=== PATIENT | female | born 1985 | race Caucasian/White ===

== ENCOUNTER → 2021-04-23 11:27 | Outpatient (BNVA) | payer OTHER, SELFPAY | PROVIDERS: PCP Internal Medicine; Visit Provider Psychiatry & Neurology Neurology | DX: G24.3 Spasmodic torticollis (principal); E83.01 Wilson's disease | CPT/HCPCS: 64616; 99212; J0585 ==

== ENCOUNTER → 2021-07-29 12:09 | Outpatient (BNVA) | payer OTHER, SELFPAY | PROVIDERS: PCP Internal Medicine; Visit Provider Psychiatry & Neurology Neurology | DX: G24.3 Spasmodic torticollis (principal); E83.01 Wilson's disease; Z79.899 Other long term (current) drug therapy | CPT/HCPCS: 64616; 99212; J0585 ==

== ENCOUNTER → 2021-11-10 15:23 | Outpatient (BNVA) | payer OTHER, SELFPAY | PROVIDERS: PCP Internal Medicine; Visit Provider Psychiatry & Neurology Neurology | DX: G24.3 Spasmodic torticollis (principal); E83.01 Wilson's disease; Z79.899 Other long term (current) drug therapy | CPT/HCPCS: 64616; 99211; J0585 ==

== ENCOUNTER → 2022-02-17 11:07 | Outpatient (BNVA) | payer OTHER, SELFPAY | PROVIDERS: PCP Internal Medicine; Visit Provider Psychiatry & Neurology Neurology | DX: G24.3 Spasmodic torticollis (principal); E83.01 Wilson's disease | CPT/HCPCS: 64616; 99211; J0585 ==

== ENCOUNTER → 2022-05-27 08:50 | Outpatient (BNVA) | payer OTHER, SELFPAY | PROVIDERS: PCP Internal Medicine; Visit Provider Psychiatry & Neurology Neurology | DX: G24.3 Spasmodic torticollis (principal); E83.01 Wilson's disease | CPT/HCPCS: 64616; 99211; J0585 ==

== ENCOUNTER 2022-09-07 13:52 | Outpatient (AMB) | payer OTHER, SELFPAY ==
--- NOTE | 2022-09-07 13:52 | MHC.OFFVIS ---
Intake Vital Signs 09/07/22 13:53 Height 5 ft 5 in Weight 119 lb BMI 19.8 BP 110/82 Blood Pressure Location Rt brachial Position Sitting Pulse 87 Pulse Source Pulse Oximeter Pulse Oximetry (%) 99 Oxygen Delivery Method Room Air Intake Visit Reasons: Botox(pharm)-CONFIRMED Intake Note: Patient presents for botox injection Allergies Penicillins Allergy (Verified 09/07/22 13:55) Hives Medication List - Last Reconciled 09/07/22 by Corinna See MD citalopram 20 mg PO DAILY clonazepam 0.5 mg PO BEDTIME 30 days cyclobenzaprine 10 mg PO BEDTIME deutetrabenazine (Austedo) 2 tabs qam and 1 tab qhs PO .twice a day; gabapentin 1-3 caps orally bedtime; norgestimate-ethinyl estradiol 0.25-35 mg-mcg 1 tab PO DAILY onabotulinumtoxinA (Botox) to be injected to neck muscles q 3 months by physician; sennosides (senna) 8.6 mg PO DAILY PRN zinc acetate (Galzin) 50 mg PO BID HPI HPI Comments History of Present Illness Details 36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 Trientene was stopped by GI . ??? Side effects including spread of toxin effect, dysphagia, breathing difficulties , bronchitis etc was discussed in detail and the patient agreed to the procedure.An informed consent was obtained ??? Botulinum toxin type A 200units -was diluted with 4 cc of normal saline at a concentration of 25 units in 0.5cc saline. Lot number [id number] expiration 03/2025 ??? Muscles injected ?Right Splenius 25 units Right Levator 50 units Right semispinalis - 25 units Left Levator 50 units ??? Total used 150 units Discarded-50units [facility] Medical History Cervical dystonia Wilsons disease Surgical History History of surgery of liver Social History Alcohol intake: never Patient Tobacco Use Status: Never used Tobacco Physical Exam Vital Signs: Last Vital Signs Pulse 87 09/07/22 13:53 BP 110/82 09/07/22 13:53 Pulse Ox 99 09/07/22 13:53 Oxygen Delivery Method Room Air 09/07/22 13:53 BMI result Body Mass Index 19.8 Const Other: antecollis and left laterocollis General: cooperative Nutritional Appearance: average body habitus Orientation/consciousness: patient oriented x3 Neuro Other: Slowed speech. . Cervical dystonia. Dystonia in upper and lower extremities. 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
[2022-09-07 13:53] VITALS: BP 110/82; PULSE 87; O2SAT 99; BMI 19.8
== END 2022-09-07 14:26 | disposition home or self-care (01) ==
PROVIDERS: Visit Provider Psychiatry & Neurology Neurology
DX: G24.3 Spasmodic torticollis (principal); E83.01 Wilson's disease
CPT/HCPCS: 64616

== ENCOUNTER → 2022-09-07 13:52 | Outpatient (BNVA) | payer OTHER, SELFPAY | PROVIDERS: Visit Provider Psychiatry & Neurology Neurology | DX: E83.01 Wilson's disease (principal); G24.3 Spasmodic torticollis | CPT/HCPCS: 64616; J0585 ==

== ENCOUNTER 2022-12-14 09:13 | Outpatient (AMB) | payer OTHER, SELFPAY ==
--- NOTE | 2022-12-14 09:19 | A.OFFVIS_ITS ---
Intake Vital Signs 12/14/22 09:20 Height 5 ft 5 in Weight 120 lb 2 oz BMI 20.0 BP 136/82 Blood Pressure Location Lt brachial Position Sitting Respiration 16 Pulse 101 H Pulse Source Pulse Oximeter Pulse Oximetry (%) 98 Oxygen Delivery Method Room Air Intake Visit Reasons: Botox(pharm) Intake Note: Pt presents to the office for Botox injections. Reel Slitter Required: No Allergies Penicillins Allergy (Verified 12/14/22 09:20) Hives Medication List - Last Reconciled 12/14/22 by Corinna See MD citalopram 20 mg PO DAILY clonazepam 0.5 mg PO BEDTIME 30 days cyclobenzaprine 10 mg PO BEDTIME deutetrabenazine (Austedo) 2 tabs qam and 1 tab qhs PO .twice a day; gabapentin 1-3 caps orally bedtime; meloxicam 7.5 mg PO DAILY norgestimate-ethinyl estradiol 0.25-35 mg-mcg 1 tab PO DAILY onabotulinumtoxinA (Botox) to be injected to neck muscles q 3 months by physician; sennosides (senna) 8.6 mg PO DAILY PRN zinc acetate (Galzin) 50 mg PO BID HPI HPI Comments History of Present Illness Details 37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 Trientene was stopped by GI . ??? Side effects including spread of toxin effect, dysphagia, breathing difficulties , bronchitis etc was discussed in detail and the patient agreed to the procedure.An informed consent was obtained ??? Botulinum toxin type A 200units -was diluted with 4 cc of normal saline at a concentration of 25 units in 0.5cc saline. Lot number [id number] expiration 03/2025 ??? Muscles injected ?Right Splenius 25 units Right Levator 50 units Right semispinalis - 25 units right trapezius 25 units Left Levator 50 units ??? Total used 175 units Discarded-25units [facility] Medical History Cervical dystonia Wilsons disease Surgical History History of surgery of liver Social History Alcohol intake: never Patient Tobacco Use Status: Never used Tobacco Physical Exam Vital Signs: Last Vital Signs Pulse 101 H 12/14/22 09:20 Resp 16 12/14/22 09:20 BP 136/82 12/14/22 09:20 Pulse Ox 98 12/14/22 09:20 Oxygen Delivery Method Room Air 12/14/22 09:20 BMI result Body Mass Index 20.0 Const Other: antecollis and left laterocollis General: cooperative Nutritional Appearance: average body habitus Orientation/consciousness: patient oriented x3 Neuro Other: Slowed speech. . Cervical dystonia. Dystonia in upper and lower extremities. Gait mildly off balance General: patient oriented x3 Office Procedures Botulinum toxin Injection 15620 - Dystonia Procedure code (CPT) selection complete Office Meds onabotulinumtoxinA 200 unit solution for injection Performing Provider: Corinna See MD [place] [facility] [place] [facility] Administered by: Corinna See MD on 12/14/22 10:02 Dose Route Admin Location Dispensed Lot Number Expiration Date [facility] Quill Skinner 175 unit IM 200 units [id number] 03/16/25 5033-4359-24 ALLERGAN/BOTOX Comments: see hpi Assessment & Plan Assessment & Plan (1) Cervical dystonia: Code(s): G24.3 - Spasmodic torticollis (2) 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
[2022-12-14 09:20] VITALS: BP 136/82; PULSE 101; RESP 16; O2SAT 98
== END 2022-12-14 09:56 | disposition home or self-care (01) ==
PROVIDERS: PCP Internal Medicine; Visit Provider Psychiatry & Neurology Neurology
DX: G24.3 Spasmodic torticollis (principal)
CPT/HCPCS: 64616

== ENCOUNTER → 2022-12-14 09:13 | Outpatient (BNVA) | payer OTHER, SELFPAY | PROVIDERS: PCP Internal Medicine; Visit Provider Psychiatry & Neurology Neurology | DX: G24.3 Spasmodic torticollis (principal); E83.01 Wilson's disease | CPT/HCPCS: 64616; 99211; J0585 ==

== ENCOUNTER 2023-03-16 10:13 | Outpatient (AMB) | payer OTHER, SELFPAY ==
--- NOTE | 2023-03-16 10:30 | A.OFFVIS_ITS ---
Intake Vital Signs 03/16/23 10:32 Height 5 ft 5 in BP 150/90 H Blood Pressure Location Lt brachial Position Sitting Respiration 16 Pulse 98 Pulse Source Pulse Oximeter Pulse Oximetry (%) 98 Oxygen Delivery Method Room Air Intake Visit Reasons: Botox(pharm)/ Confirmed Intake Note: Pt presents to the office for Botox injections. Pot Puller Required: No Allergies Penicillins Allergy (Verified 03/16/23 10:30) Hives Medication List - Last Reconciled 03/16/23 by Corinna See MD citalopram 20 mg PO DAILY clonazepam 0.5 mg PO BEDTIME 30 days cyclobenzaprine 10 mg PO BEDTIME deutetrabenazine (Austedo) 2 tabs qam and 1 tab qhs PO .twice a day; gabapentin 1-3 caps orally bedtime; meloxicam 7.5 mg PO DAILY norgestimate-ethinyl estradiol 0.25-35 mg-mcg 1 tab PO DAILY onabotulinumtoxinA (Botox) to be injected to neck muscles q 3 months by physician; sennosides (senna) 8.6 mg PO DAILY PRN zinc acetate (Galzin) 50 mg PO BID HPI HPI Comments History of Present Illness Details 37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 Trientene was stopped by GI . ??? Side effects including spread of toxin effect, dysphagia, breathing difficulties , bronchitis etc was discussed in detail and the patient agreed to the procedure.An informed consent was obtained ??? Botulinum toxin type A 200units -was diluted with 4 cc of normal saline at a concentration of 25 units in 0.5cc saline. Lot number [id number] expiration 07/2025 ??? Muscles injected ?Right Splenius 25 units Right Levator 50 units Right semispinalis - 25 units Sunny trapezius 25 units each Left Levator 50 units ??? Total used 175 units Discarded-25units [facility] Medical History Cervical dystonia Wilsons disease Surgical History History of surgery of liver Social History Alcohol intake: never Patient Tobacco Use Status: Never used Tobacco Physical Exam Vital Signs: Last Vital Signs Pulse 98 03/16/23 10:32 Resp 16 03/16/23 10:32 BP 150/90 H 03/16/23 10:32 Pulse Ox 98 03/16/23 10:32 Oxygen Delivery Method Room Air 03/16/23 10:32 Const Other: antecollis and left laterocollis General: cooperative Nutritional Appearance: average body habitus Orientation/consciousness: patient oriented x3 Neuro Other: Slowed speech. . Cervical dystonia. Dystonia in upper and lower extremities. Gait mildly off balance General: patient oriented x3 Office Procedures Botulinum toxin Injection 37852 - Dystonia Procedure code (CPT) selection complete Office Meds onabotulinumtoxinA 200 unit solution for injection Performing Provider: Corinna See MD Performing Location: [facility] [place] [facility] Administered by: Corinna See MD on 03/16/23 11:15 Dose Route Admin Location Dispensed Lot Number Expiration Date 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
[2023-03-16 10:32] VITALS: BP 150/90; PULSE 98; RESP 16; O2SAT 98
== END 2023-03-16 11:13 | disposition home or self-care (01) ==
PROVIDERS: PCP Internal Medicine; Visit Provider Psychiatry & Neurology Neurology
DX: G24.3 Spasmodic torticollis (principal); E83.01 Wilson's disease
CPT/HCPCS: 64616

== ENCOUNTER → 2023-03-16 10:13 | Outpatient (BNVA) | payer OTHER, SELFPAY | PROVIDERS: PCP Internal Medicine; Visit Provider Psychiatry & Neurology Neurology | DX: E83.01 Wilson's disease (principal); G24.3 Spasmodic torticollis | CPT/HCPCS: 64616; 99211; J0585 ==

== ENCOUNTER 2023-06-15 09:40 | Outpatient (AMB) | payer OTHER, SELFPAY ==
--- NOTE | 2023-06-15 09:44 | MHC.OFFVIS ---
Vital Signs 06/15/23 09:50 Respiration 16 Pulse 101 H Pulse Source Pulse Oximeter Pulse Oximetry (%) 98 Oxygen Delivery Method Room Air Intake Visit Reasons: Botox(pharm)-CONF Intake Note: Pt presents for Botox injections. 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 Trientene was stopped by GI . ??? Side effects including spread of toxin effect, dysphagia, breathing difficulties , bronchitis etc was discussed in detail and the patient agreed to the procedure.An informed consent was obtained ??? Botulinum toxin type A 200units -was diluted with 4 cc of normal saline at a concentration of 25 units in 0.5cc saline. Lot number [id number] expiration 07/2025 ??? Muscles injected ?Right Splenius 25 units Right Levator 50 units Right semispinalis - 25 units Sunny trapezius 25 units each Left Levator 50 units LEFT TRAPEZIUS 25 UNITS ??? Total used 200 units [facility] Medical History Cervical dystonia Wilsons disease Surgical History History of surgery of liver Social History Alcohol intake: never Patient Tobacco Use Status: Never used Tobacco Physical Exam Const Other: antecollis and left laterocollis General: cooperative Nutritional Appearance: average body habitus Orientation/consciousness: patient oriented x3 Neuro Other: Slowed speech. . Cervical dystonia. Dystonia in upper and lower extremities. Gait mildly off balance General: patient oriented x3 Office Procedures Botulinum toxin Injection 48770 - Dystonia Procedure code (CPT) selection complete Office Meds onabotulinumtoxinA 200 unit solution for injection Performing Provider: Corinna See MD Performing Location[place] [facility] [place] [facility] Administered by: Corinna See MD on 06/15/23 10:10 Dose Route Admin Location Dispensed Lot Number Expiration Date [facility] Inbound Customer Service Agent 200 unit IM 200 units [id number] 07/14/25 8167-9635-49 ALLERGAN/BOTOX Comments: see hpi Assessment & Plan Assessment & Plan (1) Cervical dystonia: Code(s): G24.3 - Spasmodic torticollis Category: Medical (2) 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
[2023-06-15 09:50] VITALS: PULSE 101; RESP 16; O2SAT 98
== END 2023-06-15 10:10 | disposition home or self-care (01) ==
PROVIDERS: PCP Internal Medicine; Visit Provider Psychiatry & Neurology Neurology
DX: G24.3 Spasmodic torticollis (principal)
CPT/HCPCS: 64616; 99211

== ENCOUNTER → 2023-06-15 09:40 | Outpatient (BNVA) | payer OTHER, SELFPAY | PROVIDERS: PCP Internal Medicine; Visit Provider Psychiatry & Neurology Neurology | DX: G24.3 Spasmodic torticollis (principal); E83.01 Wilson's disease | CPT/HCPCS: 64616; 99211; J0585 ==

== ENCOUNTER 2023-10-05 10:13 | Outpatient (AMB) | payer OTHER, SELFPAY ==
[2023-10-05 10:22] VITALS: BP 120/72; PULSE 101; RESP 16; O2SAT 99
--- NOTE | 2023-10-05 10:22 | A.OFFVIS_ITS ---
Vital Signs 10/05/23 10:22 Height 5 ft 5 in BP 120/72 Blood Pressure Location Rt brachial Position Sitting Respiration 16 Pulse 101 H Pulse Source Pulse Oximeter Pulse Oximetry (%) 99 Oxygen Delivery Method Room Air Intake Visit Reasons: Botox Intake Note: Pt presents to the office for Botox injections for cervical dystonia. Senior Ruby Developer Required: No Allergies Penicillins Allergy (Verified 10/05/23 10:22) Hives Medication List - Last Reconciled 10/05/23 by Corinna See MD [cane As directed] citalopram 20 mg PO DAILY clonazepam 0.5 mg PO BEDTIME 30 days cyclobenzaprine 10 mg PO BEDTIME deutetrabenazine (Austedo) 2 tabs qam and 1 tab qhs PO .twice a day; gabapentin 1-3 caps orally bedtime; meloxicam 7.5 mg PO DAILY norgestimate-ethinyl estradiol 0.25-35 mg-mcg 1 tab PO DAILY onabotulinumtoxinA (Botox) to be injected to neck muscles q 3 months by physician; sennosides (senna) 8.6 mg PO DAILY PRN zinc acetate (Galzin) 50 mg PO BID HPI Comments Details: 38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 Trientene was stopped by GI . ??? Side effects including spread of toxin effect, dysphagia, breathing difficulties , bronchitis etc was discussed in detail and the patient agreed to the procedure.An informed consent was obtained ??? Botulinum toxin type A 200units -was diluted with 4 cc of normal saline at a concentration of 25 units in 0.5cc saline. Lot number [id number] expiration 12/2025 ??? Muscles injected ?Right Splenius 25 units Right Levator 50 units Right semispinalis - 25 units Sunny trapezius 25 units each Left Levator 50 units LEFT TRAPEZIUS 25 UNITS ??? Total used 200 units [facility] Medical History Cervical dystonia Wilsons disease Surgical History History of surgery of liver Social History Alcohol intake: never Patient Tobacco Use Status: Never used Tobacco Physical Exam Vital Signs: Last Vital Signs Pulse 101 H 10/05/23 10:22 Resp 16 10/05/23 10:22 BP 120/72 10/05/23 10:22 Pulse Ox 99 10/05/23 10:22 Oxygen Delivery Method Room Air 10/05/23 10:22 Const Other: antecollis and left laterocollis General: cooperative Nutritional Appearance: average body habitus Orientation/consciousness: patient oriented x3 Neuro Other: Slowed speech. . Cervical dystonia. Dystonia in upper and lower extremities. Gait mildly off balance General: patient oriented x3 Office Procedures Botulinum toxin Injection 55485 - Dystonia Procedure code (CPT) selection complete Office Meds onabotulinumtoxinA 200 unit solution for injection Performing Provider: Corinna See MD [place] [facility] [place] [facility] Administered by: Corinna See MD on 10/05/23 11:10 Dose Route Admin Location Dispensed Lot Number Expiration Date [facility] Junior Account Manager 200 unit IM 200 units [id number] 12/14/25 5518-2800-41 ALLERGAN/BOTOX Comments: see HPI Assessment & Plan Assessment & Plan (1) Cervical dystonia: Code(s): G24.3 - Spasmodic torticollis Category: Medical (2) 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
== END 2023-10-05 11:03 | disposition home or self-care (01) ==
PROVIDERS: PCP Internal Medicine; Visit Provider Psychiatry & Neurology Neurology
DX: G24.3 Spasmodic torticollis (principal); E83.01 Wilson's disease
CPT/HCPCS: 64616

== ENCOUNTER → 2023-10-05 10:13 | Outpatient (BNVA) | payer OTHER, SELFPAY | PROVIDERS: PCP Internal Medicine; Visit Provider Psychiatry & Neurology Neurology | DX: G24.3 Spasmodic torticollis (principal); E83.01 Wilson's disease | CPT/HCPCS: 64616; 99211; J0585 ==

== ENCOUNTER 2024-01-08 09:23 | Outpatient (AMB) | payer OTHER, SELFPAY ==
--- NOTE | 2024-01-08 09:26 | MHC.OFFVIS ---
Vital Signs 01/08/24 09:29 Height 5 ft 5 in Intake Visit Reasons: Botox Intake Note: Patient presents for botox injection Allergies Penicillins Allergy (Verified 01/08/24 09:33) Hives Medication List - Last Reconciled 01/10/24 by Corinna See MD [cane As directed] citalopram 20 mg PO DAILY clonazepam 0.5 mg PO BEDTIME 30 days cyclobenzaprine 10 mg PO BEDTIME deutetrabenazine (Austedo) 2 tabs qam and 1 tab qhs PO .twice a day; gabapentin 1-3 caps orally bedtime; meloxicam 7.5 mg PO DAILY norgestimate-ethinyl estradiol 0.25-35 mg-mcg 1 tab PO DAILY onabotulinumtoxinA (Botox) to be injected to neck muscles q 3 months by physician; sennosides (senna) 8.6 mg PO DAILY PRN zinc acetate (Galzin) 50 mg PO BID HPI Comments Details: 38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 Trientene was stopped by GI . ??? Side effects including spread of toxin effect, dysphagia, breathing difficulties , bronchitis etc was discussed in detail and the patient agreed to the procedure.An informed consent was obtained ??? Botulinum toxin type A 200units -was diluted with 4 cc of normal saline at a concentration of 25 units in 0.5cc saline. Lot number [id number] expiration 12/2025 ??? Muscles injected ?Right Splenius 25 units Right Levator 50 units Right semispinalis - 25 units Sunny trapezius 25 units each Left Levator 50 units ??? Total used 200 units [facility] Medical History Cervical dystonia Wilsons disease Surgical History History of surgery of liver Social History Alcohol intake: never Patient Tobacco Use Status: Never used Tobacco Physical Exam Const Other: antecollis and left laterocollis General: cooperative Nutritional Appearance: average body habitus Orientation/consciousness: patient oriented x3 Neuro Other: Slowed speech. . Cervical dystonia. Dystonia in upper and lower extremities. Gait mildly off balance General: patient oriented x3 Office Procedures Botulinum toxin Injection 50431 - Dystonia Procedure code (CPT) selection complete Office Meds onabotulinumtoxinA 200 unit solution for injection Performing Provider: Corinna See MD Performing Location: [facility] [place] [facility] Administered by: Corinna See MD on 01/10/24 08:42 Dose Route Admin Location Dispensed Lot Number Expiration Date [facility] Linderman Operator 200 unit IM 200 units [id number] ALLERGAN/BOTOX Comments: see HPI Assessment & Plan Assessment & Plan (1) Cervical dystonia: Code(s): G24.3 - Spasmodic torticollis Category: Medical (2) 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
== END 2024-01-08 10:15 | disposition home or self-care (01) ==
PROVIDERS: PCP Internal Medicine; Visit Provider Psychiatry & Neurology Neurology
DX: G24.3 Spasmodic torticollis (principal)
CPT/HCPCS: 64616

== ENCOUNTER → 2024-01-08 09:23 | Outpatient (BNVA) | payer OTHER, SELFPAY | PROVIDERS: PCP Internal Medicine; Visit Provider Psychiatry & Neurology Neurology | DX: G24.3 Spasmodic torticollis (principal); E83.01 Wilson's disease | CPT/HCPCS: 64616; 99211; J0585 ==

== ENCOUNTER 2024-04-23 08:50 | Outpatient (AMB) | payer OTHER, SELFPAY ==
[2024-04-23 08:52] VITALS: BP 110/72; PULSE 112; O2SAT 99
--- NOTE | 2024-04-23 08:52 | A.OFFVIS_ITS ---
Vital Signs 04/23/24 08:52 Height 5 ft 5 in BP 110/72 Blood Pressure Location Rt brachial Position Sitting Pulse 112 H Pulse Source Pulse Oximeter Pulse Oximetry (%) 99 Oxygen Delivery Method Room Air Intake Visit Reasons: Botox Intake Note: Patient presents for botox injection. practice supplied Allergies Penicillins Allergy (Verified 04/23/24 08:55) Hives Medication List - Last Reconciled 04/23/24 by Corinna See MD [cane As directed] citalopram 20 mg PO DAILY clonazepam 0.5 mg PO BEDTIME 30 days cyclobenzaprine 10 mg PO BEDTIME deutetrabenazine (Austedo) 2 tabs qam and 1 tab qhs PO .twice a day; gabapentin 1-3 caps orally bedtime; meloxicam 7.5 mg PO DAILY norgestimate-ethinyl estradiol 0.25-35 mg-mcg 1 tab PO DAILY onabotulinumtoxinA (Botox) to be injected to neck muscles q 3 months by physician; sennosides (senna) 8.6 mg PO DAILY PRN zinc acetate (Galzin) 50 mg PO BID HPI Comments Details: 38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 Trientene was stopped by GI . ??? Side effects including spread of toxin effect, dysphagia, breathing difficulties , bronchitis etc was discussed in detail and the patient agreed to the procedure.An informed consent was obtained ??? Botulinum toxin type A 200units -was diluted with 4 cc of normal saline at a concentration of 25 units in 0.5cc saline. Lot number [id number] expiration 05/2026 ??? Muscles injected ?Right Splenius 25 units Right Levator 50 units Right semispinalis - 25 units Sunny trapezius 25 units each Left Levator 50 units ??? Total used 200 units [facility] Medical History Cervical dystonia Wilsons disease Surgical History History of surgery of liver Social History Alcohol intake: never Patient Tobacco Use Status: Never used Tobacco Physical Exam Vital Signs: Last Vital Signs Pulse 112 H 04/23/24 08:52 BP 110/72 04/23/24 08:52 Pulse Ox 99 04/23/24 08:52 Oxygen Delivery Method Room Air 04/23/24 08:52 Const Other: antecollis and left laterocollis General: cooperative Nutritional Appearance: average body habitus Orientation/consciousness: patient oriented x3 Neuro Other: Slowed speech. . Cervical dystonia. Dystonia in upper and lower extremities. Gait mildly off balance General: patient oriented x3 Office Procedures Botulinum toxin Injection 31764 - Dystonia Procedure code (CPT) selection complete Office Meds onabotulinumtoxinA 200 unit solution for injection Performing Provider: Corinna See MD Performing Location: [facility] Administered by: Corinna See MD on 04/23/24 09:29 Dose Route Admin Location Dispensed Lot Number Expiration Date NDC Admissions Supervisor 200 unit subcut 200 units [id number] 05/14/26 2492-1834-74 ALLERGAN/BOTOX Comments: see hpi Assessment & Plan Assessment & Plan (1) Cervical dystonia: Code(s): G24.3 - Spasmodic torticollis Category: Medical (2) 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 Category: Medical Plan zinc 50mg 2tabs bid citalopram 20mg qd Patient tolerated the procedure well she will call with any side effects Patient will benefit from Massage therapy to her neck muscles 2 times a month to relive tightness stiffness and discomfort Orders: Orders AMB Botulinum toxin Injection Today G24.3 - Spasmodic torticollis Medications: New lorazepam 1 tab 1 hr before botox 0.5 mg PO DAILY PRN 2 tabs 3RF anxiety onabotulinumtoxinA 200 units subcut ONCE 1 ea 0RF Dystonia G24.3 - Spasmodic torticollis Changed From cyclobenzaprine 10 mg PO BEDTIME 30 tabs 3RF To cyclobenzaprine 1 tab qhs and extra 1/2 tab as needed at bedtime orally bedtime; 1 tab at bedtime , extra 1/2 tab as needed at bed time 45 tabs 3RF Coding Level of Care Code Est Pt Level 1 (56690) Diagnoses Cervical dystonia G24.3 Wilsons disease E83.01 CPT Codes Botox Injection - Botox 4: 71071 - Dystonia ([id number])
--- OUTSIDE RECORDS SUMMARY | 2024-04-23 09:43 | XMS_ITS | Data Portability ---
Author Organization [place] - [facility], Allergy Address [address] [place] [id number] Assessment No assessment recorded. Plan of Treatment Reminders Order Date Submit Date Provider Last Modified By Organization Details Last Modified Time Details Appointments None recorded. Lab None recorded. Referral None recorded. Procedures None recorded. Surgeries None recorded. Imaging None recorded. Medication Orders clindamycin HCl 300 mg capsule 2024 025 [facility]/Pharmacy #[id number], [address] [place], [address], 13:51:41 Patient TargetsNo targets recorded. Patient InstructionsNo instructions recorded. Reason for Referral None Reported. Problems Name Problem SNOMED Code Status Onset Date Resolution Date Notes Provider Name and Address Organization Details Recorded Time Hematoma of left pinna 964335097998262 2 Active 2024 SANDRA ROMO MD [address] [place] [address], [phone], [facility] 13:50:38 Problem Notes None recorded. Procedures Surgical History Date Name Laterality Status Provider Name and Address Organization Details Recorded Time Auricular hematoma left I&D w bolster completed SANDRA ROMO MD [address] [place] [address], [phone], [facility] 03/25/2024 13:50:23 Imaging Results None recorded. Procedure Notes None recorded. Medical Equipment None Reported. Allergies Allergen ID Allergen Name Allergen Category Reaction Reaction Severity Criticality Documentation Date Start Date Code Code System Note Provider Name and Address Organization Details Recorded Time 909636 Product containin g penicilli n (product) medicatio n rash Not available low 03/25/2024 43454 1197 SNOMED Lacey garcia [place] - [facility] 13:12:34 Medications Name Sig Start Date Stop Date Status Note LastModified by Organization Details LastModified Time cyclobenzap rine 10 mg tablet active Not Available Not Available Not Available Galzin 50 mg (zinc) capsule TAKE 1 CAPSULE BY MOUTH TWICE A DAY active Not Available Not Available No t Available norgestimat e 0.25 mg-ethinyl estradiol 35 mcg tablet TAKE 1 TABLET BY MOUTH EVERY DAY DIRECTED FOR 84 DAYS active Not Available Not Available No t Available ketoconazol e 2 % shampoo PLEASE SEE ATTACHED FOR DETAILED DIRECTION S 03/29 completed Not Available Not Available Not Available clindamycin HCl 300 mg capsule TAKE 1 CAPSULE BY MOUTH EVERY 8 HOURS FOR 7 DAYS active Not Available Not Available No t Available clonazepam 0.5 mg tablet TAKE 1 TABLET ORALLY BEDTIME FOR 30 DAYS ADMINISTE R 30 MINUTES BEFORE BEDTIME active Not Available Not Available No t Available citalopram 20 mg tablet active Not Available Not Available Not Available sodium fluoride 1.1 %-potassium nitrate 5 % dental paste USE 2-3X/PAMELA Y, SPIT OUT EXCESS DO NOT RINSE WITH WATER. NO EATING OR DRINKING FOR 45 MIN AFTER. active Not Available Not Available No t Available diclofenac 1 % topical gel TAKE 2 GRAMS (TOPICAL) 4 TIMES PER DAY FOR 10 DAYS active Not Available Not Available No t Available Botox 200 unit injection active Not Available Not Available No t Available Austedo 6 mg tablet active Not Available Not Available No t Available Vitals Date Recorded Body height Body mass index (BMI) Body weight Provider Name and Address Organization Details Last Updated DateTime 03/25/2024 165.1 cm 20.8 kg/m2 32287.05 g Lacey Faulkner [place] - [facility] 03/25/2024 13:11:56 Date Recorded Body height Body mass index (BMI) Body weight Provider Name and Address Organization Details Last Updated DateTime 03/29/2024 165.1 cm 20.8 kg/m2 97051.05 g Clarice Dillard [place] - [facility] 03/29/2024 13:32:43 Social History Question Answer Notes LastModified by Organizat ion Details LastModified Time Do You Use Any Illicit Or Recreational Drugs? No Information not available 03/25/2024 Do You Or Have You Ever Used Any Other Forms Of Tobacco Or Nicotine? No Information not available 03/25/2024 Sex: Unknown Functional Status None recorded. Mental Status None recorded. Family History Nothing Reported. Medical History Condition Response Allergies/Hayfever N Heart Problems N Anxiety N Tonsil Infections N Emphysema N Migraines Y Thyroid Problems N Glaucoma N Depression N COPD N Developmental Delay N Nasal or Sinus Problems N Anemia N Immune System Disorder Y Anesthesia Complications N Heart Attack ([place]) N Other Skin Condition N Diabetes N Rhinitis N Bleeding Disorder N Food Allergy N Arthritis Y Hearing Loss N Hyperlipidemia N Cancer N Stroke N Dementia N Nasal polyps N Asthma N Sleep Disorder N GERD/Reflux N High Cholesterol N Liver Disease N Headaches Y Fibromyalgia N Hypertension Y Speech Delay N Kidney Disease N Gynecological HistoryNo gynecological history recorded. 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 The area is fairly small involving primarily the triangular fossa. She did have it aspirated but it has since recollecte d. We discussed observatio n versus incision and drainage. We discussed risk of infection, recurrence , persistent deformity. She elected to proceed and tolerated the procedure well. Will follow-up in a few days to remove the dressing and reassess. [id number] SANDRA ROMO MD [facility] [address] [address] 03/29/2024 13:25:35 03/29/2024 15:37:55 Hematoma of left pinna [id number] 092776 H61.122 Bolster removed. There is no recurrence of fluctuance , but there is still little thickening at the site of hematoma. Follow-up for any worsening. Health Concerns Section Related Observation LastModified by Organization Detai ls LastModified Time None Recorded Concern Status LastModified by Organization Details LastModified Time None Recorded Advance Directives Directive None Recorded Payers Encounter Date Sequence Insurance Name Policy Number Policy Peterson Covered Member ID Peterson Member ID Guarantor Name 03/25/2024 1 [facility] (MEDICARE REPLACEMENT/ADV ANTAGE - HMO) Sultana Yun Nola [id number] Ronel Yun Nola 03/25/2024 1 [place] [facility] Ronel Yun Nola [id number] Ronel Yun Nola 03/29/2024 1 [facility] - DOS ON OR AFTER 2022 - [employer] (MEDICARE REPLACEMENT/ADV ANTAGE - HMO) Sultana Nola [id number] Ronel M Nola Notes Date Note Type Note Provider Name and Address Organization Details Recorded Time 03/25/2024 text/html 38-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 She is not quite sure how she received it. She did hit the back of her head, but does not recall any direct trauma to her ear. She does wear ear buds. She did have it aspirated at urgent care. SANDRA ROMO MD [address] [place] [address], [phone], [place] - [facility] 03/27/2024 10:24:28 03/29/2024 text/html 38 yo F here for followup of auricular hematoma. SANDRA ROMO MD [address] [place] [address],[address], [phone], [place] - [facility] 03/29/2024 15:30:36 OBGyn Episode No OBEpisode recorded.
--- OUTSIDE RECORDS SUMMARY | 2024-04-23 09:43 | XMS_ITS | Continuity of Care Document ---
Author Organization [place] - [facility], [facility] Address [address] [place] [address] Assessment No assessment recorded. Plan of Treatment Reminders Order Date Submit Date Provider Last Modified By Organization Details Last Modified Time Details Appointments None recorded. Lab None recorded. Referral None recorded. Procedures None recorded. Surgeries None recorded. Imaging None recorded. Medication Orders clindamycin HCl 300 mg capsule 2024 025 [facility]/Pharmacy #1972, [address] [place], [address], 13:51:41 Patient TargetsNo targets recorded. Patient InstructionsNo instructions recorded. Reason for Referral None Reported. Problems Name Problem SNOMED Code Status Onset Date Resolution Date Notes Provider Name and Address Organization Details Recorded Time Hematoma of left pinna 632373149724608 2 Active 2024 SANDRA ROMO MD [address] [place] [address], [phone], [facility] 13:50:38 Problem Notes None recorded. Procedures Surgical History Date Name Laterality Status Provider Name and Address Organization Details Recorded Time Auricular hematoma left I&D w bolster completed SANDRA ROMO MD [address] [place] [address], [phone], [facility] 03/25/2024 13:50:23 Imaging Results None recorded. Procedure Notes None recorded. Medical Equipment None Reported. Allergies Allergen ID Allergen Name Allergen Category Reaction Reaction Severity Criticality Documentation Date Start Date Code Code System Note Provider Name and Address Organization Details Recorded Time 796047 Product containin g penicilli n (product) medicatio n rash Not available low 03/25/2024 83612 8001 SNOMED Lacey garcia [place] - [facility] 13:12:34 Medications Name Sig Start [...] Updated DateTime 03/25/2024 165.1 cm 20.8 kg/m2 46328.05 g Lacey Faulkner [place] - [facility] 03/25/2024 13:11:56 Social History Question Answer Notes LastModified by [...] Disorder Y Anesthesia Complications N Heart Attack ([place]) N Other Skin Condition N Diabetes N [...] SNOMED-CT Code Diagnosis ICD10 Code Diagnosis Note [id number] SANDRA ROMO MD [facility] [address] [address] 03/25/2024 12:43:06 03/25/2024 13:53:12 Hematoma of left pinna [id number] 008506 H61.122 38-year-ol d female with history of [...] days to remove the dressing and reassess. Health Concerns Section Related Observation LastModified by Organization Detai ls LastModified Time None Recorded Concern Status LastModified by Organization Details LastModified Time None Recorded Payers Encounter Date Sequence Insurance Name Policy Number Policy Peterson Covered Member ID Peterson Member ID Guarantor Name 03/25/2024 1 [facility] (MEDICARE REPLACEMENT/A DVANTAGE - HMO) Sultana Vaca [id number] Ronel Vaca 03/25/2024 1 [place] [employer] Ronel Vaca [id number] Ronel Vaca Notes Date Note Type Note Provider Name [...] aspirated at urgent care. SANDRA ROMO MD [address] [place] [address], [place], [address], [facility] - [facility] 03/27/2024 10:24:28 OBGyn Episode No OBEpisode recorded.
--- OUTSIDE RECORDS SUMMARY | 2024-04-23 09:43 | XMS_ITS | Data Portability ---
Author Organization [facility], [facility] Address [address], [place] Assessment No assessment recorded. Plan of Treatment Reminders Order Date Submit Date Provider Last Modified By Organization Details Last Modified Time Details Appointments None recorded. Lab urinalysis complete, reflex culture 2017 018 [facility], [address] [place] [address], [address], 8 05:00:41 urinalysis complete, reflex culture 2016 017 [facility], [address] [place] [address], [address], 7 08:39:27 CT + NG DNA, PCR, unspecifie d specimen 2016 017 [facility], [address] [place] [address], [address], 7 08:39:27 Referral physical therapy knee referral 2016 017 [facility], [address] [place], [address], 8 05:01:24 Procedures None recorded. Surgeries None recorded. Imaging None recorded. Medication Orders Bactrim DS 800 mg-160 mg tablet 2017 018 [facility]FACE [facility], [address] [place], [address], 8 11:24:57 clonazepam 0.5 mg tablet 2017 018 INTERFACE [facility], [address] [place], [address], 8 13:17:53 clonazepam 0.5 mg tablet 2016 017 INTERFACE [facility], [address] [place], [address], 7 08:37:01 docusate sodium 100 mg capsule 2016 017 INTERFACE [facility], [address] [place], [address], 7 09:02:46 [place] [facility] Gummies chewable tablet 2016 017 [email or web address] [facility], [address] [place] [address], [address], 8 13:08:23 senna 8.6 mg tablet 2016 017 INTERFACE [facility], [address] [place], [address], 7 09:02:47 clonazepam 0.5 mg tablet 2016 017 INTERFACE [facility], [address] [place], [address], 7 09:02:48 acetaminop hen 325 mg tablet 2016 017 INTERFACE [facility], [address] [place], [address], 7 09:02:46 Fioricet 50 mg-300 mg-40 mg capsule 2016 017 [email or web address] [facility], [address] [place], [address], 7 08:51:38 Nasonex 50 mcg/actuat ion [place] 2016 017 [facility]0989, [address] [facility], [place], [address], 7 08:51:52 Patient TargetsNo targets recorded. Patient Instructions Encounter Date Encounter Id Patient Instructions Last Modified By Organization Details Last Modified Time 05/20/[id number] Take medications as prescribed.Follow recommended diet.Contact office at [phone] if any problems develop. [email or web address] Not available 05/20/2016 14:21:20 {{IBora MD I, Mackenzie Claudio,DO-Family Physician I, Mackenzie Claudio DO Sports Medicine Physician I, Deepa Cosby 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 with Bora Claudio MD I, Katelyn Multani PA in collaboration with Bora Claudio MD* }} spent {{60 minutes 45 minutes 30 minutes 20 minutes* 15 minutes }} examining , reviewing diagnostic, consultative, imaging findings {{and treating patient }}. I explained to patient the nature of the problems and other possible treatments: {{pharmacological and dietary management in the form of osteopathic manipulation intra - and nathan-articular injections ligamen eduin injections nerve block trigger points injections Acupunc ture physical therapy surgical management }} {{pharmacological and dietary management in the form of osteopathic manipulation intra - and nathan-articular injections ligamen eduin injections nerve block trigger points injections Acupunc ture physical therapy surgical management }} {{pharmacological and dietary management in the form of osteopathic manipulation intra - and nathan-articular injections ligamen eduin injections nerve block trigger points injections Acupunc ture physical therapy surgical management }} {{pharmacological and dietary management in the form of osteopathic manipulation intra - and nathan-articular injections ligamen eduin injections nerve block trigger points injections Acupunc ture physical therapy surgical management }} Risk and benefits of these interventions were discussed in details.50 % of this visit was dedicated to counseling. [email or web address] Not available 05/20/2016 14:21:14 08/08/2016 [id number] constipation: ca re instructions DANISHA Not available 09/11/2016 05:01:17 Take medications as prescribed.Follow recommended diet.Contact office at [phone] if any problems develop. [email or web address] Not available 08/08/2016 09:05:11 {{Bora Hughes MD I, Mackenzie lCaudio DO-Family Physician* Mackenzie Hughes DO Sports Medicine Physician I, Deepa Cosby 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 with Bora Claudio MD I, Katelyn THOMAS in collaboration with Bora Claudio MD }} spent {{60 minutes 45 minutes 30 minutes 20 minutes* 15 minutes }} examining , reviewing diagnostic, consultative, imaging findings {{and treating patient* }}. I explained to patient the nature of the problems and other possible treatments: {{pharmacological and dietary management* in the form of osteopathic manipulation intra - and nathan-articular injections ligamen eduin injections nerve block trigger points injections Acupunc ture physical therapy surgical management }} {{pharmacological and dietary management in the form of osteopathic manipulation intra - and nathan-articular injections ligamen eduin injections nerve block trigger points injections Acupunc ture physical therapy surgical management }} {{pharmacological and dietary management in the form of osteopathic manipulation intra - and nathan-articular injections ligamen eduin injections nerve block trigger points injections Acupunc ture physical therapy surgical management }} {{pharmacological and dietary management in the form of osteopathic manipulation intra - and nathan-articular injections ligamen eduin injections nerve block trigger points injections Acupunc ture physical therapy surgical management }} Risk and benefits of these interventions were discussed in details.50 % of this visit was dedicated to counseling. [email or web address] Not available 08/08/2016 09:05:19 10/31/2016 [id number] frequent urination: care instructions DANISHA Not available 12/04/2016 05:00:44 knee pain or injury: care instructions DANISHA Not available 12/04/2016 05:00:46 Take medications as prescribed.Follow recommended diet.Contact office at [phone] if any problems develop. [email or web address] Not available 10/31/2016 08:23:49 {{Bora Hughes MD I, Diana Trister, DO-Family Physician* Mackenzie Hughes DO Sports Medicine Physician I, Deepa Cosby 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 with Bora Claudio MD I, Katelyn THOMAS in collaboration with Bora Claudio MD }} spent {{60 minutes 45 minutes 30 minutes* 20 minutes 15 minutes }} examining , reviewing diagnostic, consultative, imaging findings {{and treating patient* }}. I explained to patient the nature of the problems and other possible treatments: {{pharmacological and dietary management* in the form of osteopathic manipulation intra - and nathan-articular injections ligamen eduin injections nerve block trigger points injections Acupunc ture physical therapy surgical management }} {{pharmacological and dietary management in the form of osteopathic manipulation intra - and nathan-articular injections ligamen eduin injections nerve block trigger points injections Acupunc ture physical therapy surgical management }} {{pharmacological and dietary management in the form of osteopathic manipulation intra - and nathan-articular injections ligamen eduin injections nerve block trigger points injections Acupunc ture physical therapy surgical management }} {{pharmacological and dietary management in the form of osteopathic manipulation intra - and nathan-articular injections ligamen eduin injections nerve block trigger points injections Acupunc ture physical therapy surgical management }} Risk and benefits of these interventions were discussed in details.50 % of this visit was dedicated to counseling. [email or web address] Not available 10/31/2016 08:23:59 03/03/2017 [id number] Take medications as prescribed.Follow recommended diet.Contact office at [phone] if any problems develop. [email or web address] Not available 03/03/2017 13:26:47 {{IBora MD I, Mackenzie Claudio DO-Family Physician I, Mackenzie Claudio DO Sports Medicine Physician I, Deepa Cosby 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 with Bora Claudio MD I, Katelyn Multani PA in collaboration with Bora Claudio MD* }} spent {{60 minutes 45 minutes 30 minutes 20 minutes* 15 minutes }} examining , reviewing diagnostic, consultative, imaging findings {{and treating patient }}. I explained to patient the nature of the problems and other possible treatments: {{pharmacological and dietary management in the form of osteopathic manipulation intra - and nathan-articular injections ligamen eduin injections nerve block trigger points injections Acupunc ture physical therapy surgical management }} {{pharmacological and dietary management in the form of osteopathic manipulation intra - and nathan-articular injections ligamen eduin injections nerve block trigger points injections Acupunc ture physical therapy surgical management }} {{pharmacological and dietary management in the form of osteopathic manipulation intra - and nathan-articular injections ligamen eduin injections nerve block trigger points injections Acupunc ture physical therapy surgical management }} {{pharmacological and dietary management in the form of osteopathic manipulation intra - and nathan-articular injections ligamen eduin injections nerve block trigger points injections Acupunc ture physical therapy surgical management }} Risk and benefits of these interventions were discussed in details.50 % of this visit was dedicated to counseling. [email or web address] Not available 03/03/2017 13:27:12 05/31/2017 [id number] Urinary Tract Infection (UTI) in Women: Care Instructions [email or web address] Not available 05/31/2017 11:24:55 Take medications as prescribed.Follow recommended diet.Contact office at [phone] if any problems develop. [email or web address] Not available 05/31/2017 11:26:27 {{IBora MD I, Mackenzie Claudio,-Family Physician I, Mackenzie Claudio DO Sports Medicine Physician I, Deepa Cosby 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 with Bora Claudio MD I, Katelyn Multani PA in collaboration with Bora Clauido MD* }} spent {{60 minutes 45 minutes 30 minutes 20 minutes* 15 minutes }} examining , reviewing diagnostic, consultative, imaging findings {{and treating patient }}. I explained to patient the nature of the problems and other possible treatments: {{pharmacological and dietary management in the form of osteopathic manipulation intra - and nathan-articular injections ligamen eduin injections nerve block trigger points injections Acupunc ture physical therapy surgical management }} {{pharmacological and dietary management in the form of osteopathic manipulation intra - and nathan-articular injections ligamen eduin injections nerve block trigger points injections Acupunc ture physical therapy surgical management }} {{pharmacological and dietary management in the form of osteopathic manipulation intra - and nathan-articular injections ligamen eduin injections nerve block trigger points injections Acupunc ture physical therapy surgical management }} {{pharmacological and dietary management in the form of osteopathic manipulation intra - and nathan-articular injections ligamen eduin injections nerve block trigger points injections Acupunc ture physical therapy surgical management }} Risk and benefits of these interventions were discussed in details.50 % of this visit was dedicated to counseling. [email or web address] Not available 05/31/2017 11:26:41 Reason for Referral Referring Physician: Mackenzie leo, Sports Medicine, Encounter Date: 10/31/2016 Results Created Date Observation Date Name Description Value Unit Range Abnormal Flag Note LastModifiedBy Organization Detail LastModifiedTime 05/01/19 17 05/02/2016 lipid panel , serum cholesterol, total 173 mg/dL 125-20 0 normal Not Available [facility] [place] [facility] [address] [place], [place], [address], 05/02/2016 08:04:36 05/01/19 17 05/02/2016 lipid panel , serum HDL cholesterol 66 mg/dL > or = 46 normal Not Available [facility] [address], [place], [address], 05/02/2016 08:04:36 05/01/19 17 05/02/2016 lipid panel , serum triglyceride s 91 mg/dL <150 normal Not Available [facility] [address], [place], [address], 05/02/2016 08:04:36 05/01/19 17 05/02/2016 lipid panel , serum LDL-choleste rol 89 mg/dL _(venita c) <130 normal Anyi able range <100 mg/dL for patie nts with CHD or diabe holli and <70 mg/dL for diabe tic patie nts with known heart disea se. Not Available [facility] [address], [place], [address], 05/02/2016 08:04:36 05/01/19 17 05/02/2016 lipid panel , serum chol/HDLC ratio 2.6 (calc ) < or = 5.0 normal Not Available [facility] [address], [place], [address], 05/02/2016 08:04:36 05/01/19 17 05/02/2016 lipid panel , serum non HDL cholesterol 107 mg/dL _(venita c) normal Targe t for non-H DL amber stero l is 30 mg/dL highe r than LDL amber stero l targe t. Not Available [facility] [address], [place], [address], 05/02/2016 08:04:36 05/01/19 17 05/02/2016 lipid panel , serum copy(ies) sent to: [facility]INI AL JOHNNY VALDERRAMAE R ACCOU N [address] [address] Not Available [facility] [place] [facility] [address], [place], [address], 05/02/2016 08:04:36 05/01/19 17 05/02/2016 BMP, serum or plasm a glucose 78 mg/dL 65-99 normal Fasti ng refer ence inter alcon Not Available [facility] [address], [place], [address], 05/02/2016 08:04:37 05/01/19 17 05/02/2016 BMP, serum or plasm a urea nitrogen (BUN) 16 mg/dL 7-25 normal Not Available [facility] [address], [place], [address], 05/02/2016 08:04:37 05/01/19 17 05/02/2016 BMP, serum or plasm a creatinine 0.90 mg/dL 0.50-1 .10 normal Not Available [facility] [place] [facility] [address], [place], [address], 05/02/2016 08:04:37 05/01/19 17 05/02/2016 BMP, serum or plasm a eGFR non-afr. comoran 85 mL/mi n/1.7 3m2 > or = 60 normal Not Available [facility] [place] [facility] [address], [place], [address], 05/02/2016 08:04:37 05/01/19 17 05/02/2016 BMP, serum or plasm a eGFR 98 mL/mi n/1.7 3m2 > or = 60 normal Not Available [facility] [place] [facility] [address], [place], [address], 05/02/2016 08:04:37 05/01/19 17 05/02/2016 BMP, serum or plasm a BUN/creatini ne ratio NOT APPLIC ABLE (calc ) 6-22 Not Available [facility] [address], [place], [address], 05/02/2016 08:04:37 05/01/19 17 05/02/2016 BMP, serum or plasm a sodium 139 mmol/ L 135-14 6 normal Not Available [facility] [place] [facility] [address], [place], [address], 05/02/2016 08:04:37 05/01/19 17 05/02/2016 BMP, serum or plasm a potassium 4.0 mmol/ L 3.5-5. 3 normal Not Available [facility] [place] [facility] [address], [place], [address], 05/02/2016 08:04:37 05/01/19 17 05/02/2016 BMP, serum or plasm a chloride 102 mmol/ L 98-110 normal Not Available [facility] [address], [place], [address], 05/02/2016 08:04:37 05/01/19 17 05/02/2016 BMP, serum or plasm a carbon dioxide 28 mmol/ L 20-31 normal Not Available [facility] [place] [facility] [address], [place], [address], 05/02/2016 08:04:37 05/01/19 17 05/02/2016 BMP, serum or plasm a calcium 9.3 mg/dL 8.6-10 .2 normal Not Available [facility] [address], [place], [address], 05/02/2016 08:04:37 05/01/19 17 05/02/2016 BMP, serum or plasm a copy(ies) sent to: GEMINI INGRAM N [address] [address] Not Available [facility] [address], [place], [address], 05/02/2016 08:04:37 05/01/19 17 05/02/2016 hepat ic funct ion panel , serum protein, total 6.5 g/dL 6.1-8. 1 normal Not Available [facility] [address], [place], [address], 05/02/2016 08:04:37 05/01/19 17 05/02/2016 hepat ic funct ion panel , serum albumin 4.2 g/dL 3.6-5. 1 normal Not Available [facility] [address], [place], [address], 05/02/2016 08:04:37 05/01/19 17 05/02/2016 hepat ic funct ion panel , serum globulin 2.3 g/dL_ (calc ) 1.9-3. 7 normal Not Available [facility] [address], [place], [address], 05/02/2016 08:04:37 05/01/19 17 05/02/2016 hepat ic funct ion panel , serum albumin/glob ulin ratio 1.8 (calc ) 1.0-2. 5 normal Not Available [facility] [address], [place], [address], 05/02/2016 08:04:37 05/01/19 17 05/02/2016 hepat ic funct ion panel , serum bilirubin, total 0.4 mg/dL 0.2-1. 2 normal Not Available [facility] [address] [place], [address], 05/02/2016 08:04:37 05/01/19 17 05/02/2016 hepat ic funct ion panel , serum bilirubin, direct 0.1 mg/dL < or = 0.2 normal Not Available [facility] [address], [place], [address], 05/02/2016 08:04:37 05/01/19 17 05/02/2016 hepat ic funct ion panel , serum bilirubin, indirect 0.3 mg/dL _(venita c) 0.2-1. 2 normal Not Available [facility] [address], [place], [address], 05/02/2016 08:04:37 05/01/19 17 05/02/2016 hepat ic funct ion panel , serum alkaline phosphatase 59 U/L 33-115 normal Not Available [facility] [address], [place], [address], 05/02/2016 08:04:37 05/01/19 17 05/02/2016 hepat ic funct ion panel , serum AST 28 U/L 10-30 normal Not Available [facility] [address], [place], [address], 05/02/2016 08:04:37 05/01/19 17 05/02/2016 hepat ic funct ion panel , serum ALT 13 U/L 6-29 normal Not Available [facility] [address], [place], [address], 05/02/2016 08:04:37 05/01/19 17 05/02/2016 hepat ic funct ion panel , serum copy(ies) sent to: GEMINI INGRAM N [address] [address] Not Available [facility] [address], [place], [address], 05/02/2016 08:04:37 05/01/19 17 05/02/2016 TSH, serum or plasm a TSH 2.91 mIU/L normal Refer ence Range > or = 20 Years 0.40- 4.50 Pregn joann Range s First trime ster 0.26- 2.66 Secon d trime ster 0.55- 2.73 Third trime ster 0.43- 2.91 Not Available [facility] [address], [place], [address], 05/02/2016 08:04:38 05/01/19 17 05/02/2016 TSH, serum or plasm a copy(ies) sent to: CENTR AL MASS IPA MASTE R ACCOU N [address] [address] Not Available [facility] [address], [place], [address], 05/02/2016 08:04:38 05/01/19 17 05/02/2016 T4, free, serum T4, free 1.1 NG/dL 0.8-1. 8 normal Not Available [facility] [address], [place], [address], 05/02/2016 08:04:38 05/01/19 17 05/02/2016 T4, free, serum copy(ies) sent to: CENTR AL [facility] IPA MASTE R ACCOU N [address] [address] Not Available [facility] [address], [address], 05/02/2016 08:04:38 05/01/19 17 05/02/2016 T3, free, serum or plasm a T3, free 3.2 pg/mL 2.3-4. 2 normal Not Available [facility] [address], [place], [address], 05/02/2016 08:04:38 05/01/19 17 05/02/2016 T3, free, serum or plasm a copy(ies) sent to: GEMINI INGRAM N [address] [address] Not Available [facility] [place] [facility] [address], [place], [address], 05/02/2016 08:04:38 05/01/19 17 05/02/2016 CBC w/ auto diff white blood cell count 9.2 thous and/u L 3.8-10 .8 normal Not Available [facility] [place] [facility] [address], [place], [address], 05/02/2016 08:04:39 05/01/19 17 05/02/2016 CBC w/ auto diff red blood cell count 4.47 carla on/uL 3.80-5 .10 normal Not Available [facility] [place] [facility] [address], [place], [address], 05/02/2016 08:04:39 05/01/19 17 05/02/2016 CBC w/ auto diff hemoglobin 13.5 g/dL 11.7-1 5.5 normal Not Available [facility] [address], [place], [address], 05/02/2016 08:04:39 05/01/19 17 05/02/2016 CBC w/ auto diff hematocrit 40.7 % 35.0-4 5.0 normal Not Available [facility] [place] [facility] [address], [place], [address], 05/02/2016 08:04:39 05/01/19 17 05/02/2016 CBC w/ auto diff MCV 91.1 fL 80.0-1 00.0 normal Not Available [facility] [address], [place], [address], 05/02/2016 08:04:39 05/01/19 17 05/02/2016 CBC w/ auto diff MCH 30.1 pg 27.0-3 3.0 normal Not Available [facility] [place] [facility] [address], [place], [address], 05/02/2016 08:04:39 05/01/19 17 05/02/2016 CBC w/ auto diff MCHC 33.1 g/dL 32.0-3 6.0 normal Not Available [facility] [place] [facility] [address], [place], [address], 05/02/2016 08:04:39 05/01/19 17 05/02/2016 CBC w/ auto diff RDW 13.7 % 11.0-1 5.0 normal Not Available [facility] [place] [facility] [address], [place], [address], 05/02/2016 08:04:39 05/01/19 17 05/02/2016 CBC w/ auto diff platelet count 239 thous and/u L 140-40 0 normal Not Available [facility] [place] [facility] [address], [place], [address], 05/02/2016 08:04:39 05/01/19 17 05/02/2016 CBC w/ auto diff MPV 10.4 fL 7.5-12 .5 normal Not Available [facility] [address], [place], [address], 05/02/2016 08:04:39 05/01/19 17 05/02/2016 CBC w/ auto diff absolute neutrophils 4977 cells /uL 1500-7 800 normal Not Available [facility] [address], [place], [address], 05/02/2016 08:04:39 05/01/19 17 05/02/2016 CBC w/ auto diff absolute lymphocytes 3156 cells /uL 850-39 00 normal Not Available [facility] [place] [facility] [address], [place], [address], 05/02/2016 08:04:39 05/01/19 17 05/02/2016 CBC w/ auto diff absolute monocytes 534 cells /uL 200-95 0 normal Not Available [facility] [place] [facility] [address], [place], [address], 05/02/2016 08:04:39 05/01/19 17 05/02/2016 CBC w/ auto diff absolute eosinophils 469 cells /uL 15-500 normal Not Available [facility] [place] [facility] [address], [place], [address], 05/02/2016 08:04:39 05/01/19 17 05/02/2016 CBC w/ auto diff absolute basophils 64 cells /uL 0-200 normal Not Available [facility] [place] [facility] [address], [place], [address], 05/02/2016 08:04:39 05/01/19 17 05/02/2016 CBC w/ auto diff neutrophils 54.1 % normal Not Available [facility] [place] [facility] [address], [place], [address], 05/02/2016 08:04:39 05/01/19 17 05/02/2016 CBC w/ auto diff lymphocytes 34.3 % normal Not Available [facility] [place] [facility] [address], [place], [address], 05/02/2016 08:04:39 05/01/19 17 05/02/2016 CBC w/ auto diff monocytes 5.8 % normal Not Available [facility] [place] [facility] [address], [place], [address], 05/02/2016 08:04:39 05/01/19 17 05/02/2016 CBC w/ auto diff eosinophils 5.1 % normal Not Available [facility] [place] [facility] [address], [place], [address], 05/02/2016 08:04:39 05/01/19 17 05/02/2016 CBC w/ auto diff basophils 0.7 % normal Not Available [facility] [place] [facility] [address], [place], [address], 05/02/2016 08:04:39 05/01/19 17 05/02/2016 CBC w/ auto diff copy(ies) sent to: GEMINI INGRAM N [address] [phone] Not Available [facility] [place] [facility] [address], [place], [address], 05/02/2016 08:04:39 05/01/19 17 05/02/2016 urina lysis compl ete, refle x cultu re color YELLOW yellow normal Not Available [facility] [address], [place], [address], 05/02/2016 08:04:39 05/01/19 17 05/02/2016 urina lysis compl ete, refle x cultu re appearance CLOUDY clear abnormal Not Available [facility] [place] [facility] [address], [place], [address], 05/02/2016 08:04:39 05/01/19 17 05/02/2016 urina lysis compl ete, refle x cultu re specific gravity 1.023 1.001- 1.035 normal Not Available [facility] [address], [place], [address], 05/02/2016 08:04:39 05/01/19 17 05/02/2016 urina lysis compl ete, refle x cultu re pH 7.0 5.0-8. 0 normal Not Available [facility] [place] [facility] [address], [place], [address], 05/02/2016 08:04:39 05/01/19 17 05/02/2016 urina lysis compl ete, refle x cultu re glucose NEGATI VE negati ve normal Not Available [facility] [place] [facility] [address], [place], [address], 05/02/2016 08:04:39 05/01/19 17 05/02/2016 urina lysis compl ete, refle x cultu re bilirubin NEGATI VE negati ve normal Not Available [facility] [place] [facility] [address], [place], [address], 05/02/2016 08:04:39 05/01/19 17 05/02/2016 urina lysis compl ete, refle x cultu re ketones NEGATI VE negati ve normal Not Available [facility] [place] [facility] [address], [place], [address], 05/02/2016 08:04:39 05/01/19 17 05/02/2016 urina lysis compl ete, refle x cultu re occult blood NEGATI VE negati ve normal Not Available [facility] [place] [facility] [address], [place], [address], 05/02/2016 08:04:39 05/01/19 17 05/02/2016 urina lysis compl ete, refle x cultu re protein TRACE negati ve abnormal Not Available [facility] [place] [facility] [address], [place], [address], 05/02/2016 08:04:39 05/01/19 17 05/02/2016 urina lysis compl ete, refle x cultu re nitrite NEGATI VE negati ve normal Not Available [facility] [place] [facility] [address], [place], [address], 05/02/2016 08:04:39 05/01/19 17 05/02/2016 urina lysis compl ete, refle x cultu re leukocyte esterase 1+ negati ve abnormal Not Available [facility] [place] [facility] [address], [place], [address], 05/02/2016 08:04:39 05/01/19 17 05/02/2016 urina lysis compl ete, refle x cultu re WBC > OR = 60 /hpf < or = 5 abnormal Not Available [facility] [place] [facility] [address], [place], [address], 05/02/2016 08:04:39 05/01/19 17 05/02/2016 urina lysis compl ete, refle x cultu re RBC 0-2 /hpf < or = 2 normal Not Available [facility] [place] [facility] [address], [place], [address], 05/02/2016 08:04:39 05/01/19 17 05/02/2016 urina lysis compl ete, refle x cultu re squamous epithelial cells > OR = 60 /hpf < or = 5 abnormal Not Available [facility] [place] [facility] [address], [place], [address], 05/02/2016 08:04:39 05/01/19 17 05/02/2016 urina lysis compl ete, refle x cultu re bacteria MANY /hpf none seen abnormal Not Available [facility] [place] [facility] [address], [place], [address], 05/02/2016 08:04:39 05/01/19 17 05/02/2016 urina lysis compl ete, refle x cultu re hyaline cast 10-20 /lpf none seen abnormal Not Available [facility] [place] [facility] [address], [place], [address], 05/02/2016 08:04:39 05/01/19 17 05/02/2016 urina lysis compl ete, refle x cultu re copy(ies) sent to: CENTR AL MASS IPA MASTE R ACCOU N [address] [phone] Not Available [facility] [place] [facility] [address], [place], [address], 05/02/2016 08:04:39 05/01/19 17 05/02/2016 cultu re, urine reflexive urine culture CULTUR E INDICA MIKE - RESULT S TO FOLLOW Not Available [facility] [place] [facility] [address], [place], [address], 05/02/2016 08:04:40 05/01/19 17 05/02/2016 cultu re, urine copy(ies) sent to: CENTR AL MASS IPA MASTE R ACCOU N [address] [phone] Not Available [facility] [place] [facility] [address], [place], [address], 05/02/2016 08:04:40 05/01/19 17 05/02/2016 iron + total iron- mounika ng capac ity (TIBC ), serum iron, total 165 mcg/d L 40-190 normal Not Available [facility] [place] [facility] [address], [place], [address], 05/02/2016 08:04:40 05/01/19 17 05/02/2016 iron + total iron- mounika ng capac ity (TIBC ), serum iron binding capacity 392 mcg/d L_(ca lc) 250-45 0 normal Not Available [facility] [place] [facility] [address], [place], [address], 05/02/2016 08:04:40 05/01/19 17 05/02/2016 iron + total iron- mounika ng capac ity (TIBC ), serum % saturation 42 %_(ca lc) 11-50 normal Not Available [facility] [address], [address], 05/02/2016 08:04:40 05/01/19 17 05/02/2016 iron + total iron- mounika ng capac ity (TIBC ), serum copy(ies) sent to: CENTR AL MASS IPA MASTE R ACCOU N [address] [address] Not Available [facility] [address], [address], 05/02/2016 08:04:40 05/01/19 17 05/02/2016 rose tin, serum or plasm a ferritin 45 NG/mL 10-154 normal Not Available [facility] [address], [address], 05/02/2016 08:04:40 05/01/19 17 05/02/2016 rose tin, serum or plasm a copy(ies) sent to: CENTR AL MASS IPA MASTE R ACCOU N [address] [phone] Not Available [facility] [address], [address], 05/02/2016 08:04:40 05/01/19 17 05/02/2016 cultu re, urine culture, urine, routine SEE NOTE CULTU RE, URINE , ROUTI NE MICRO NUMBE R: [id number] TEST STATU S: FINAL SPECI MEN SOURC E: URINE SPECI MEN QUALI TY: ADEQU ATE RESUL T: Three or more organ isms prese nt, each great er than 10,00 0 cu/mL . June repre sent jaycee l roz conta minat ion from exter nal genit audie. No furth er testi ng is requi red. Not Available [facility] [place] [facility] [address], [place], [address], 05/02/2016 08:04:41 05/01/19 17 05/02/2016 cultu re, urine copy(ies) sent to: CENTR AL MASS IPA MASTE R ACCOU N 446 [facility] [address] [place] [address] Not Available [facility] [place] [facility] [address], [place], [address], 05/02/2016 08:04:41 11/01/19 17 11/01/2016 urina lysis compl ete, refle x cultu re specific gravity 1.026 1.005- 1.030 Not Available [facility] [address] [place], [address], 11/04/2016 08:39:27 11/01/19 17 11/01/2016 urina lysis compl ete, refle x cultu re pH 8.0 5.0-7. 5 above high normal Not Available [facility] ([facility]) [address] [place], [address], 11/04/2016 08:39:27 11/01/19 17 11/01/2016 urina lysis compl ete, refle x cultu re urine-color Yellow yellow Not Available [facility]) [address] [place], [address], 11/04/2016 08:39:27 11/01/1911/01/2016 urina lysis compl ete, refle x cultu re appearance Turbid clear abnormal Not Available [facility] [address] [place], [address], 11/04/2016 08:39:27 11/01/19 17 11/01/2016 urina lysis compl ete, refle x cultu re WBC esterase Negati ve negati ve Not Available [facility] ([facility]) [address] [facility], [place], [address], 11/04/2016 08:39:27 11/01/19 17 11/01/2016 urina lysis compl ete, refle x cultu re protein Trace negati ve/tra ce Not Available [facility] ([facility]) [address] [facility], [place], [address], 11/04/2016 08:39:27 11/01/19 17 11/01/2016 urina lysis compl ete, refle x cultu re glucose Negati ve negati ve Not Available [facility] ([facility]) [address] [place], [address], 11/04/2016 08:39:27 11/01/19 17 11/01/2016 urina lysis compl ete, refle x cultu re ketones Negati ve negati ve Not Available [facility] ([facility]) [address] [facility], [place], [address], 11/04/2016 08:39:27 11/01/19 17 11/01/2016 urina lysis compl ete, refle x cultu re occult blood Negati ve negati ve Not Available [facility] ([facility]) [address] [place], [address], 11/04/2016 08:39:27 11/01/19 17 11/01/2016 urina lysis compl ete, refle x cultu re bilirubin Negati ve negati ve Not Available [facility] ([facility]) [address] [place], [address], 11/04/2016 08:39:27 11/01/1911/01/2016 urina lysis compl ete, refle x cultu re urobilinogen ,semi-qn 0.2 eu/dL 0.2-1. 0 Not Available [facility] ([facility]) [address] [place], [address], 11/04/2016 08:39:27 11/01/19 17 11/01/2016 urina lysis compl ete, refle x cultu re nitrite, urine Positi ve negati ve abnormal Not Available [facility] ([facility]) [address] [place], [address], 11/04/2016 08:39:27 11/01/19 17 11/01/2016 urina lysis compl ete, refle x cultu re microscopic examination See below: Not Available [facility] ([facility]) [address] [place], [address], 11/04/2016 08:39:27 11/01/19 17 11/01/2016 urina lysis compl ete, refle x cultu re WBC 0-5 /hpf 0 - 5 Not Available [facility] ([facility]) [address] [place], [address], 11/04/2016 08:39:27 11/01/19 17 11/01/2016 urina lysis compl ete, refle x cultu re RBC None seen /hpf 0 - 2 Not Available [facility] ([facility]) [address] [facility], [place], [address], 11/04/2016 08:39:27 11/01/19 17 11/01/2016 urina lysis compl ete, refle x cultu re epithelial cells (non renal) 0-10 /hpf 0 - 10 Not Available [facility] ([facility] [address] [place], [address], 11/04/2016 08:39:27 11/01/19 17 11/01/2016 urina lysis compl ete, refle x cultu re epithelial cells (renal) 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 Not Available [facility] ([facility] [address] [place], [address], 11/04/2016 08:39:27 11/01/19 17 11/01/2016 urina lysis compl ete, refle x cultu re casts 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 Not Available [facility] ([facility] [address] [place], [address], 11/04/2016 08:39:27 11/01/19 17 11/01/2016 urina lysis compl ete, refle x cultu re cast type 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 Not Available [facility] ([facility]) [address] [place], [address], 11/04/2016 08:39:27 11/01/19 17 11/01/2016 urina lysis compl ete, refle x cultu re crystals Presen t n/a abnormal Not Available [facility] ([facility]) [address] [place], [address], 11/04/2016 08:39:27 11/01/19 17 11/01/2016 urina lysis compl ete, refle x cultu re crystal type Triple Phosph ate n/a Not Available [facility] ([facility]) [address] [place], [address], 11/04/2016 08:39:27 11/01/19 17 11/01/2016 urina lysis compl ete, refle x cultu re mucus threads Presen t not estab. Not Available [facility] ([facility]) [address] [place], [address], 11/04/2016 08:39:27 11/01/19 17 11/01/2016 urina lysis compl ete, refle x cultu re bacteria Modera te none seen/f ew abnormal Not Available [facility] ([facility] [address] [place], [address], 11/04/2016 08:39:27 11/01/19 17 11/01/2016 urina lysis compl ete, refle x cultu re yeast Presen t none seen abnormal Not Available [facility] ([facility] [address] [place], [address], 11/04/2016 08:39:27 11/01/19 17 11/01/2016 urina lysis compl ete, refle x cultu re trichomonas 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 Not Available [facility]) [address] [facility], [place], [address], 11/04/2016 08:39:27 11/01/19 17 11/01/2016 urina lysis compl ete, refle x cultu re comment 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 Not Available [facility] ([facility] [address] [facility], [place], [address], 11/04/2016 08:39:27 11/01/19 17 11/01/2016 urina lysis compl ete, refle x cultu re microscopic examination 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 Not Available [facility] ([facility]) [address] [facility], [place], [address], 11/04/2016 08:39:27 11/01/19 17 11/03/2016 urina lysis compl ete, refle x cultu re urine culture,comp rehensive Final report abnormal Not Available [facility] ([facility]) [address] [place], [address], 11/04/2016 08:39:27 11/01/19 17 11/03/2016 urina lysis compl ete, refle x cultu re result 1 Commen t abnormal Prote us mirab ilis/ penne ri 50,00 0-100 ,000 colon y formi ng units per mL Not Available [facility] ([facility]) [address] [place], [address], 11/04/2016 08:39:27 11/01/19 17 11/03/2016 urina lysis compl ete, refle x cultu re antimicrobia l susceptibili ty Commen t S = Susce ptibl e; I = Inter media te; R = Resis tant P = Posit shemar; N = Negat shemar MICS are expre ssed in micro grams per mL Antib iotic RSLT# 1 RSLT# 2 RSLT# 3 RSLT# 4 Amoxi cilli n/Cla vulan ic Acid S<=2 Ampic illin S<=2 Cefep ricardo S<=1 Ceftr iaxon e S<=1 Cefur oxime S<=1 Cepha lothi n S =4 Cipro floxa lukasz S<=0. 25 Ertap enem S<=0. 5 Genta micin S<=1 Levof loxac in S<=0. 12 Nitro furan toin R =128 Piper acill in S<=4 Tetra cycli ne R>=16 Tobra mycin S<=1 Trime thopr im/Alaniz lfa S<=20 Not Available [facility] ([facility]) [address] [place], [address], 11/04/2016 08:39:27 11/01/19 17 11/02/2016 CT + NG DNA, PCR, unspe cifie d speci men chlamydia trachomatis, RENU Negati ve negati ve Not Available [facility] ([facility]) [address] [place], [address], 11/04/2016 08:39:27 11/01/19 17 11/02/2016 CT + NG DNA, PCR, unspe cifie d speci men neisseria gonorrhoeae, RENU Negati ve negati ve Not Available [facility] ([facility]) [address] [place], [address], 11/04/2016 08:39:27 11/01/19 17 11/01/2016 no laven merissa recei nasreen no lavender received TNP No laven merissa top tube submi tted. TEST: 88557 9 CBC With Diffe renti al/Pl atele t Not Available [facility] ([facility]) [address] [facility], [place], [address], 11/04/2016 08:39:28 11/01/19 17 11/01/2016 no serum gel recei nasreen no serum gel received TNP No serum recei nasreen. TEST: [id number] 2 Lipid Panel and Chol/ HDL Ratio 20272 8 Basic Metab olic Panel (7) 96808 5 Hepat ic Funct ion Panel (7) 21297 9 TSH Not Available [facility] ([facility] [address] [facility], [place], [address], 11/04/2016 08:39:28 11/01/19 17 11/03/2016 cardi ovasc ular asses sment panel , serum interpretati on Not applic able A Litho link CDS inter preti ve repor t has not been gener ated since order ed tests are not curre ntly relev ant to the progr am. Not Available [facility] ([facility]) [address] [facility], [place], [address], 11/04/2016 08:39:28 11/01/19 17 11/03/2016 cardi ovasc ular asses sment panel , serum pdf image Not applic able Not Available [facility] ([facility] [address] [facility], [place], [address], 11/04/2016 08:39:28 03/08/19 18 03/08/2017 BMP, serum or plasm a glucose 80 mg/dL 65-99 normal Fasti ng refer ence inter alcon Not Available [facility] [place] [facility] [address] [place], [address], 03/08/2017 19:05:44 03/08/1903/08/2017 BMP, serum or plasm a urea nitrogen (BUN) 11 mg/dL 7-25 normal Not Available [facility] [place] [facility] [address], [address], 03/08/2017 19:05:44 03/08/19 18 03/08/2017 BMP, serum or plasm a creatinine 0.76 mg/dL 0.50-1 .10 normal Not Available [facility] [address] [place], [place], [address], 03/08/2017 19:05:44 03/08/19 18 03/08/2017 BMP, serum or plasm a eGFR non-afr. comoran 103 mL/mi n/1.7 3m2 > or = 60 normal Not Available [facility], [place], [address], 03/08/2017 19:05:44 03/08/19 18 03/08/2017 BMP, serum or plasm a eGFR 119 mL/mi n/1.7 3m2 > or = 60 normal Not Available [facility], [place], [address], 03/08/2017 19:05:44 03/08/19 18 03/08/2017 BMP, serum or plasm a BUN/creatini ne ratio NOT APPLIC ABLE (calc ) 6-22 Not Available [facility], [place], [address], 03/08/2017 19:05:44 03/08/19 18 03/08/2017 BMP, serum or plasm a sodium 137 mmol/ L 135-14 6 normal Not Available [facility], [place], [address], 03/08/2017 19:05:44 03/08/19 18 03/08/2017 BMP, serum or plasm a potassium 4.3 mmol/ L 3.5-5. 3 normal Not Available [facility], [place], [address], 03/08/2017 19:05:44 03/08/19 18 03/08/2017 BMP, serum or plasm a chloride 102 mmol/ L 98-110 normal Not Available [facility] [address] [place], [place], [address], 03/08/2017 19:05:44 03/08/19 18 03/08/2017 BMP, serum or plasm a carbon dioxide 27 mmol/ L 20-31 normal Not Available [facility] [address], [place], [address], 03/08/2017 19:05:44 03/08/19 18 03/08/2017 BMP, serum or plasm a calcium 9.3 mg/dL 8.6-10 .2 normal Not Available [facility] [address], [place], [address], 03/08/2017 19:05:44 03/08/19 18 03/08/2017 BMP, serum or plasm a copy(ies) sent to: GEMINI AL JOHNNY IPA LAVELLEE R ACCOU N [address] [address] Not Available [facility] [address], [place], [address], 03/08/2017 19:05:44 03/08/19 18 03/08/2017 CBC w/ auto diff white blood cell count 9.5 thous and/u L 3.8-10 .8 normal Not Available [facility] [address], [place], [address], 03/08/2017 19:05:44 03/08/19 18 03/08/2017 CBC w/ auto diff red blood cell count 4.61 carla on/uL 3.80-5 .10 normal Not Available [facility] [address], [place], [address], 03/08/2017 19:05:44 03/08/19 18 03/08/2017 CBC w/ auto diff hemoglobin 13.7 g/dL 11.7-1 5.5 normal Not Available [facility] [place] [facility] [address], [place], [address], 03/08/2017 19:05:44 03/08/19 18 03/08/2017 CBC w/ auto diff hematocrit 41.8 % 35.0-4 5.0 normal Not Available [facility] [place] [facility] [address], [place], [address], 03/08/2017 19:05:44 03/08/19 18 03/08/2017 CBC w/ auto diff MCV 90.7 fL 80.0-1 00.0 normal Not Available [facility] [place] [facility] [address], [place], [address], 03/08/2017 19:05:44 03/08/19 18 03/08/2017 CBC w/ auto diff MCH 29.8 pg 27.0-3 3.0 normal Not Available [facility] [place] [facility] [address], [place], [address], 03/08/2017 19:05:44 03/08/19 18 03/08/2017 CBC w/ auto diff MCHC 32.9 g/dL 32.0-3 6.0 normal Not Available [facility] [place] [facility] [address], [place], [address], 03/08/2017 19:05:44 03/08/19 18 03/08/2017 CBC w/ auto diff RDW 13.9 % 11.0-1 5.0 normal Not Available [facility] [place] [facility] [address], [place], [address], 03/08/2017 19:05:44 03/08/19 18 03/08/2017 CBC w/ auto diff platelet count 263 thous and/u L 140-40 0 normal Not Available [facility] [place] [facility] [address], [place], [address], 03/08/2017 19:05:44 03/08/19 18 03/08/2017 CBC w/ auto diff MPV 10.1 fL 7.5-12 .5 normal Not Available [facility] [place] [facility] [address], [place], [address], 03/08/2017 19:05:44 03/08/19 18 03/08/2017 CBC w/ auto diff absolute neutrophils 5596 cells /uL 1500-7 800 normal Not Available [facility] [place] [facility] [address], [place], [address], 03/08/2017 19:05:44 03/08/19 18 03/08/2017 CBC w/ auto diff absolute lymphocytes 2898 cells /uL 850-39 00 normal Not Available [facility] [place] [facility] [address], [place], [address], 03/08/2017 19:05:44 03/08/19 18 03/08/2017 CBC w/ auto diff absolute monocytes 523 cells /uL 200-95 0 normal Not Available [facility] [place] [facility] [address], [place], [address], 03/08/2017 19:05:44 03/08/19 18 03/08/2017 CBC w/ auto diff absolute eosinophils 437 cells /uL 15-500 normal Not Available [facility] [place] [facility] [address], [place], [address], 03/08/2017 19:05:44 03/08/19 18 03/08/2017 CBC w/ auto diff absolute basophils 48 cells /uL 0-200 normal Not Available [facility] [place] [facility] [address], [place], [address], 03/08/2017 19:05:44 03/08/19 18 03/08/2017 CBC w/ auto diff neutrophils 58.9 % normal Not Available [facility] [place] [facility] [address], [address], 03/08/2017 19:05:44 03/08/19 18 03/08/2017 CBC w/ auto diff lymphocytes 30.5 % normal Not Available [facility] [place] [facility] [address], [address], 03/08/2017 19:05:44 03/08/19 18 03/08/2017 CBC w/ auto diff monocytes 5.5 % normal Not Available [facility] [place] [facility] [address], [address], 03/08/2017 19:05:44 03/08/19 18 03/08/2017 CBC w/ auto diff eosinophils 4.6 % normal Not Available [facility] [place] [facility] [address], [address], 03/08/2017 19:05:44 03/08/19 18 03/08/2017 CBC w/ auto diff basophils 0.5 % normal Not Available [facility] [place] [facility] [address], [address], 03/08/2017 19:05:44 03/08/19 18 03/08/2017 CBC w/ auto diff copy(ies) sent to: CENTR AL MASS IPA MASTE R ACCOU N [address] [phone] Not Available [facility] [place] [facility] [address], [address], 03/08/2017 19:05:44 06/01/19 18 05/31/2017 urina lysis , compl ete urine color YELLOW Not Available [facility] [address] [place] [address], [address], 06/02/2017 13:15:50 06/01/19 18 05/31/2017 urina lysis , compl ete urine pH 8.0 5.0 - 8.0 Not Available [facility] [address] [place] [address], [address], 06/02/2017 13:15:50 06/01/19 18 05/31/2017 urina lysis , compl ete urine spec grav 1.021 1.001 - 1.030 Not Available [facility] [address] [place] [address], [address], 06/02/2017 13:15:50 06/01/19 18 05/31/2017 urina lysis , compl ete urine protein 1+ less than 1+ high Not Available [facility] [address] [place] [address], [address], 06/02/2017 13:15:50 06/01/19 18 05/31/2017 urina lysis , compl ete urine glucose NEGATI VE negati ve Not Available [facility] [address] [place] [address], [address], 06/02/2017 13:15:50 06/01/19 18 05/31/2017 urina lysis , compl ete urine ketones NEGATI VE negati ve Not Available [facility] [address] [place] [address], [address], 06/02/2017 13:15:50 06/01/19 18 05/31/2017 urina lysis , compl ete urine bilirubin NEGATI VE negati ve Not Available [facility] [address] [place] [address], [id number], 06/02/2017 13:15:50 06/01/19 18 05/31/2017 urina lysis , compl ete urobilinogen <1.0 mg/dL <1.0 Not Available [facility] [address] [place] [address], [id number], 06/02/2017 13:15:50 06/01/19 18 05/31/2017 urina lysis , compl ete urine occult blood 2+ negati ve high Not Available [facility] [address] [place] [address], [id number], 06/02/2017 13:15:50 06/01/19 18 05/31/2017 urina lysis , compl ete urine RBC 10 per_h pf 0 - 3 high Not Available [facility] [address] [place] [address], [id number], 06/02/2017 13:15:50 06/01/19 18 05/31/2017 urina lysis , compl ete urine WBC 57 per_h pf 0 - 5 high Not Available [facility] [address] [place] [address], [id number], 06/02/2017 13:15:50 06/01/19 18 05/31/2017 urina lysis , compl ete urine bacteria 4+ negati ve high Not Available [facility] [address] [place] [address], [id number], 06/02/2017 13:15:50 06/01/19 18 05/31/2017 urina lysis , compl ete urine triple phosphate 1+ Not Available [facility] [address] [place] [address], [id number], 06/02/2017 13:15:50 06/01/19 18 05/31/2017 urina lysis , compl ete leukocyte esterase 2+ negati ve high Not Available [facility] [address] [place] [address], [id number], 06/02/2017 13:15:50 06/01/19 18 05/31/2017 urina lysis , compl ete urine nitrite POSITI VE negati ve high Not Available [facility] [address] [place] [address], [id number], 06/02/2017 13:15:50 06/01/19 18 05/31/2017 urina lysis , compl ete squamous epithelial RARE 0 - 1+ Not Available [facility] [address] [place] [address], [id number], 06/02/2017 13:15:50 06/01/19 18 05/31/2017 cultu re, urine urine culture POSITI VE high SOURC E STATU S: FINAL REPOR T COLON Y COUNT : >100, 000 ORG/M L NOTE: UNLES S DESIG NATED BY APOLINAR BRIONESL CRITE KAY IS USED TO DETER MINE REFLE X TO CULTU RE ORGAN ISM #1: PROTE US MIRAB ILIS - Sensi tivit y Repor t - (S=Alaniz scept ible I=Int ermed iate R=Res istan t) MARY = (Mini mum Inhib itory Demetria ntrat ion) Value s in mcg/m l Org#1 MARY PROMI R Antib iotic AMPIC ILLIN S <=2 CEFAZ JOSE S <=4 CIPRO FLOXA LUKASZ S <=0.2 5 ERTAP ENEM S <=0.5 GENTA MICIN S <=1 LEVOF LOXAC IN S <=0.1 2 NITRO FURAN TOIN R 128 TOBRA MYCIN S <=1 TRIME TH/ALANIZ LFA S <=20 Not Available [facility] [address] [place] [address], [id number], 06/02/2017 13:15:50 10/05/19 17 10/03/2016 imagi ng/di agnos tic resul t No observ ation record ed. dtrister Not Available 2016 16:16:24 11/01/19 17 10/31/2016 imagi ng/di agnos tic resul t No observ ation record ed. BARCODE Not Available 2016 10:30:14 Result Notes None recorded. 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 6 09:33:19 Disorder of ankle 913024396 Active Mackenzie González, DO [address], [place], [address], [facility] 6 09:33:19 Dystonia 16511658 Active Mackenzie [facility], [facility], [place], [address], [facility] 6 09:33:19 Tension-type headache 751145972 Active Mackenzie González, [address] [place], [address], [facility] 6 09:33:19 Abnormal gait 37541664 Active Mackenzie González, [address] [place], [address], [facility] 6 09:33:19 Ataxia 52747555 Active Mackenzie Trister, DO [address] , [place], [address], [facility] 6 09:33:19 Ataxic gait 44523185 Active Mackenzie González, DO [facility] [place], [address], [facility] 6 09:33:19 Contusion of toenail 03011894 Active Mackenzie Trister, DO [address], [place], [address], [facility] 6 09:33:19 Somatic dysfunction of rib 721512660 Active 2015 Mackenzie Trister, DO [address] [place], [address], [facility], 6 08:49:02 Somatic dysfunction of cranium 203526411 Active 2015 Mackenzie Trister, [address], [address], [facility], 6 08:49:08 Cervical somatic dysfunction 958053294 Active 2015 Mackenzie Claudio, [address], [address], [facility], 6 08:49:16 Thoracic somatic dysfunction Active 2015 Mackenzie Claudio [address], [address], [facility], 6 08:49:28 Somatic dysfunction of upper limb 380647847 Active [address], [address], [facility], 6 08:49:34 Dysplastic nevus of skin 086303883 Active [address], [address], [facility], 6 08:49:46 Impaired mobility 76242718 Active [address], [address], [facility], 7 09:13:12 Urinary tract infectious disease 58499437 Active 2017 [facility] 11:22:48 Problem Notes None recorded. Procedures Surgical History Date Name Laterality Status Provider Name and Address Organization Details Recorded Time 8 Dip stick completed Katelyn multani [facility], 05/31/2017 11:22:44 7 Dip stick completed Edith Cage [facility], 10/31/2016 08:37:56 6 OMT 3-4 completed Bora Claudio MD [address] [place] [address], [address], [facility] 01/21/2016 22:33:17 6 OMT 5-6 completed Bora Claudio MD [address] [place], [address], [facility] 12/24/2015 14:49:00 6 OMT 5-6 completed Mackenzie González, DO [address] [place], [address], [facility] 11/30/2015 08:48:51 6 E/b(trunk,arms ,legs)3.1-4.0 cm completed Mackenzie Claudio, DO [address] [place], [address], [facility] 11/23/2015 20:33:16 6 Layer closure of wounds of the scalp,axilla,t runk,extremiti es 2.6-7.5cm completed Mackenzie Claudio, DO [address] [place], [address], [facility] 11/23/2015 20:31:58 6 OMT 5-6 completed Mackenzie Claudio, DO [address] [place], [address], [facility] 11/12/2015 17:02:28 6 Punch Biopsy 1 completed Mackenzie Claudio, DO [address] [place], [address], [facility] 11/05/2015 22:28:18 6 Ankle strapping completed Mackenzie Claudio, DO [address] [place], [address], [facility] 04/14/2015 08:47:31 Imaging Results Imaging Date Name Status LastModified by [facility] Details LastModified Time 10/03/2016 imaging/diag nostic result active dtrister Information not available 10/10/2016 16:16:24 10/31/2016 imaging/diag nostic result completed BARCODE Information not available 10/31/2016 10:30:14 Procedure Notes None recorded. Medical Equipment None Reported. Allergies Allergen ID Allergen Name Allergen Category Reaction Reaction Severity Criticality Documentation Date Start Date Code Code System Note Provider Name and Address Organization Details Recorded Time 94998 Product containin g penicilli n (product) medicatio n Not available Not available Not available 12/25/2014 53862 8001 SNOMED [facility] 5 11:15:07 Medications Name Sig Start Date Stop Date Status Note LastModified by Organization Details LastModified Time Prescriptio n - Renewal active Not Available Not Available Not Available cyclobenzap rine 10 mg tablet TAKE 1 TABLET EVERY TWELVE HOURS PRN FOR MUSCLE PAIN active Not Available Not Available No t Available acetaminoph en 325 mg tablet TAKE 1 TABLET BY MOUTH TWICE A DAY active Not Available Not Available No t Available ketoconazol e 2 % shampoo 03/03 completed Not Available Not Available Not Available citalopram 10 mg tablet TAKE 1 TABLET BY MOUTH DAILY active Not Available Not Available No t Available sumatriptan 100 mg tablet TAKE 1 TABLET BY MOUTH TWICE A DAY NEEDED 08/08 completed Not Available Not Available Not Available senna 8.6 mg tablet TAKE 2 TABLETS BY MOUTH AT BEDTIME active Not Available Not Available No t Available Syprine 250 mg capsule TAKE ONE CAPSULE BY MOUTH EVERY DAY active Not Available Not Available No t Available clonazepam 0.5 mg tablet TAKE 1 TABLET BY MOUTH EVERY DAY active Not Available Not Available No t Available antipyrine- benzocaine 5.4 %-1.4 % ear drops PUT 2 DROPS INTO EAR CANAL EVERY 3 HOURS NEEDED FOR EAR PAIN. active Not Available Not Available No t Available baclofen 10 mg tablet Take 0.5 tablets twice a day by oral route. 12/23 completed Not Available Not Available Not Available doxycycline monohydrate 100 mg capsule TAKE 1 TABLET TWICE DAILY. 08/08 completed Not Available Not Available Not Available docusate sodium 100 mg capsule TAKE 1 CAPSULE BY MOUTH 3 TIMES A DAY active Not Available Not Available No t Available mometasone 50 mcg/actuati on nasal spray INSTILL 2 SPRAYS IN NOSE EVERY DAY 08/08 completed Not Available Not Available Not Available omeprazole 20 mg capsule,del ayed release 11/29 completed Not Available Not Available Not Available trihexyphen idyl 2 mg tablet TAKE 1 TABLET EVERY 6 HOURS 03/03 completed Not Available Not Available Not Available Cipro 250 mg tablet Take 1 tablet twice a day by oral route with meals for 5 days. 03/03 completed Not Available Not Available Not Available ketoconazol e 2 % topical cream 03/03 completed Not Available Not Available Not Available naproxen 500 mg tablet TAKE 1 TABLET BY MOUTH TWICE DAILY WITH FOOD. active Not Available Not Available No t Available Bactrim DS 800 mg-160 mg tablet Take 1 tablet twice a day by oral route as directed for 5 days. 2017 active Not Available Not Available Not Avai lable (28) 1.5 mg-30 mcg (21)/75 mg (7) tablet TAKE 1 TABLET BY MOUTH EVERY DAY active Not Available Not Available No t Available zinc sulfate 50 mg 11/04 completed Not Available Not Available Not Available (28) 1 tab daily 11/29 completed Not Available Not Available Not Available zinc sulfate 50 mg zinc (220 mg) capsule TAKE 1 CAPSULE BY MOUTH 3 TIMES DAILY active Not Available Not Available No t Available tetrabenazi ne 12.5 mg tablet Take 1 tablet every day by oral route. active Not Available Not Available No t Available butalbital- acetaminoph en-caffeine 50 mg-300 mg-40 mg capsule TAKE 1 CAPSULE(S ) 3 TIMES A DAY BY ORAL ROUTE DIRECTED FOR 30 DAYS. 08/08 completed Not Available Not Available Not Available Flintstones Gummies chewable tablet TAKE 1 TABLET BY MOUTH EVERY DAY 03/03 completed Not Available Not Available Not Available Flintstones Gummies [place]-3 DHA 16 mg chewable tablet CHEW 1 TABLET BY MOUTH DAILY active Not Available Not Available No t Available Afluria (PF) 45 mcg (15 mcg x 3)/0.5 mL IM syringe USE DIRECTED active Not Available Not Available No t Available Fluarix Quad (PF) 60 mcg (15 mcg x 4)/0.5 mL IM syringe TO BE ADMINISTE RED BY PHARMACIS T FOR IMMUNIZAT ION 11/04 completed Not Available Not Available Not Available Flucelvax Quad (PF) 60 mcg (15 mcg x 4)/0.5 mL IM syringe TO BE ADMINISTE RED BY PHARMACIS T FOR IMMUNIZAT ION 03/03 completed Not Available Not Available Not Available Vitals Date Recorded Body height Body weight Body mass index (BMI) Body temperature Heart rate Systolic blood pressure Diastolic blood pressure Provider Name and Address Organization Details Last Updated DateTime 7 165.1 cm 28827.5 3 g 19 kg/m2 96.8 [degF] 66 /min 110 mm[Hg] 84 mm[Hg] Katelyn perea chilo [facility], 7 13:59:11 Date Recorded Body height Body mass index (BMI) Body weight Body temperature Heart rate Systolic blood pressure Diastolic blood pressure Provider Name and Address Organization Details Last Updated DateTime 7 165.1 cm 19.1 kg/m2 07978.1 2 g 96.8 [degF] 98 /min 104 mm[Hg] 68 mm[Hg] Mackenzie Claudio, DO [address] [place], [address], [facility], 7 08:51:34 Date Recorded Body height Heart rate Body temperature Body mass index (BMI) Body weight Oxygen saturation Oxygen saturation in Arterial blood by Pulse oximetry Systolic blood pressure Diastolic blood pressure Provider Name and Address Organization Details Last Updated DateTime 7 165.1 cm 107 /min 97.8 [degF] 19.1 kg/m2 23183.1 2 g 98 % 98 % 106 mm[Hg] 70 mm[Hg] Edith Cage [facility], 7 07:59:58 Date Recorded Body height Heart rate Body temperature Body mass index (BMI) Body weight Systolic blood pressure Diastolic blood pressure Systolic blood pressure Diastolic blood pressure Provider Name and Address Organization Details Last Updated DateTime 8 165.1 cm 90 /min 97 [degF] 21.6 kg/m2 31353.0 1 g 132 mm[Hg] 90 mm[Hg] 120 mm[Hg] 82 mm[Hg] Charity Cross [facility], 8 13:08:09 Date Recorded Body height Heart rate Body temperature Body mass index (BMI) Body weight Respiratory rate Systolic blood pressure Diastolic blood pressure Provider Name and Address Organization Details Last Updated DateTime 8 165.1 cm 103 /min 97.8 [degF] 20 kg/m2 33904.0 8 g 18 /min 120 mm[Hg] 86 mm[Hg] Katelyn malone-af [facility], 8 11:18:05 Social History Question Answer Notes LastModified by Organizat ion Details LastModified Time Tobacco Smoking Status Never Smoker Not Available [facility] 11/29/2019 03:10:45 Marital Status Single 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 03/03/2017 [id number] Information not available 11/29/2019 How Many Children Do You Have? 0 [id number] Information not available 11/29/2019 Sex: Unknown Functional Status None recorded. Mental Status None recorded. Family History Nothing Reported. Medical History No medical history recorded. 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 General ex amination of patient 905893348 Z00.00 Knee pain 63455691 M25.5 62 [id number] Mackenzie Claudio DO [address] [address] 04/14/2015 08:07:22 04/14/2015 08:59:05 Knee pain 52498597 M25.562 Disorder of ankle 200426 008 M25.9 Rafael's disease 8202437 9 E83.01 Disorder of muscle 05769 5002 G72.9 Dystonia 77789096 G24.9 [id number] Mackenzie Claudio DO [address] [place] [address] 07/22/2015 08:46:47 07/22/2015 09:47:56 Dystonia 14225487 G24.9 Rafael's disease 3238299 9 E83.01 Disorder of muscle 11328 5002 G72.9 Tension-type headache 39 4232049 G44.209 Abnormal gait 06509557 R 26.9 Ataxia 56306522 R27.0 Ataxic gait 16695288 R26 .0 Disorder of ankle 941154 008 M25.9 Knee pain 21540970 M25.5 62 Contusion of toenail 170 53707 S90.211A [id number] Mackenzie ReadjeremyDO [facility] [address] [place] [address] 10/21/2015 08:57:06 10/21/2015 10:02:17 Adult health examination 456965517 Z00.00 Constipation 22396312 K5 9.00 [id number] Mackenzie Claudio DO [address] [address] 11/05/2015 13:25:19 11/05/2015 14:47:21 Melanocytic nevus of skin 266617199 D22.9 Ataxia 16296651 R27.0 [id number] Mackenzie Claudio DO [address] [address] 11/12/2015 14:00:01 11/12/2015 14:34:17 Somatic dysfunction of rib 457745131 M99.08 Somatic dy sfunction of cranium 701946684 M99.00 Cervical s omatic dysfunction 201463657 M99.01 Thoracic s omatic dysfunction 190631915 M99.02 Somatic dy sfunction of upper limb 471962290 M99.07 Dysplastic nevus of skin 682535427 D22.9 [id number] Mackenzie Claudio DO [address] [address] 11/19/2015 13:41:31 11/19/2015 14:27:25 Melanocytic nevus of skin 122258981 D22.9 Dysplastic nevus of skin 706480527 D22.9 [id number] Bora Claudio MD [address] [address] 11/20/2015 09:41:45 11/20/2015 10:27:49 Skin lesion 01620676 L98.9 dressing change only [id number] Mackenzie Claudio DO [address] [address] 11/30/2015 08:04:06 11/30/2015 08:50:32 Somatic dysfunction of rib 420451944 M99.08 Dysplastic nevus of skin 119355319 D22.9 Somatic dy sfunction of upper limb 425158925 M99.07 Thoracic s omatic dysfunction 027504209 M99.02 Cervical s omatic dysfunction 800644025 M99.01 Somatic dy sfunction of cranium 488678422 M99.00 [id number] Bora Claudio MD [facility] [address] [place] [address] 12/24/2015 14:02:41 12/24/2015 15:13:34 Cervical somatic dysfunction 804666655 M99.01 Somatic dy sfunction of cranium 682621722 M99.00 Thoracic s omatic dysfunction 048674692 M99.02 Somatic dy sfunction of rib 231129447 M99.08 Somatic dy sfunction of upper limb 574914902 M99.07 Ataxic gait 81062646 R26 .0 Tension-type headache 39 3267360 G44.209 [id number] Bora Claudio MD [address] [address] 01/21/2016 14:10:19 01/21/2016 14:56:55 Cervical somatic dysfunction 101804605 M99.01 OMT Thoracic s omatic dysfunction 263993741 M99.02 OMT Somatic dy sfunction of cranium 337273322 M99.00 OMT [id number] Katelyn gyimah-aff deandre [address] [address] 05/20/2016 13:36:02 05/20/2016 14:17:12 Headache 78041848 R51 Sinusitis 21329676 J32.9 declines antibiotic today [id number] Mackenzie Claudio DO [address] [address] 08/08/2016 08:45:01 08/08/2016 09:04:33 Rafael's disease 47002790 E83.01 Ataxia 16492273 R27.0 Dystonia 65361082 G24.9 Muscle pain 47367736 M79 .1 Anxiety 16106220 F41.9 Constipation 42455211 K5 9.00 Abnormal gait 69488368 R 26.9 [id number] Mackenzie Claudio DO [facility] [address] [place] [address] 10/31/2016 07:52:28 10/31/2016 08:40:03 Knee pain 24428983 M25.562 Adult heal th examination 549478719 Z00.00 Increased frequency of urination 367947665 R35.0 Anxiety 94758705 F41.9 [id number] Katelyn malone-henrik carrera [facility] [address] [place] [address] 03/03/2017 12:55:55 03/03/2017 13:31:46 Insomnia 523240617 G47.00 [id number] Katelyn carrrea [facility] [address] [place] [address] 05/31/2017 10:25:41 05/31/2017 11:28:13 Urinary tract infectious disease 21194339 N39.0 Health Concerns Section Related Observation LastModified by Organization Detai ls LastModified Time None Recorded Concern Status LastModified by Organization Details LastModified Time None Recorded Advance Directives Directive None Recorded Payers Encounter Date Sequence Insurance Name Policy Number Policy Peterson Covered Member ID Peterson Member ID Guarantor Name 05/20/2016 1 [facility] [employer] - UNIFY - ONE CARE (MEDICARE - MEDICAID REPLACEMENT) Ronel Vaca [id number] Ronel Vaca 08/08/2016 1 [facility] [employer] - UNIFY - ONE CARE (MEDICARE - MEDICAID REPLACEMENT) Ronel Vaca [id number] Ronel Vaca 10/31/2016 1 [facility] [employer] - UNIFY - ONE CARE (MEDICARE - MEDICAID REPLACEMENT) Ronel Vaca [id number] Ronel Vaca 03/03/2017 1 [facility] [employer] - UNIFY - ONE CARE (MEDICARE - MEDICAID REPLACEMENT) Ronel Vaca [id number] Ronel Vaca 05/31/2017 1 [facility] (MEDICARE - MEDICAID REPLACEMENT) Ronel Vaca [id number] Ronel Vaca Notes Date Note Type Note Provider Name and Address Organization Details Recorded Time 05/21/19 17 text/htm l HeadacheReported bypatient.Location:occipital Quality:not the worst headache ever; similar to previous headaches Severity:moderate Context:not related to trauma Associated Symptoms:no vomiting; no sensitivity to light; tearing/watery eyes; no confusion; no slurred speech; no preceeding aura; no double vision; normal feeling/sensation; no motor paralysis; no dizziness; no sleep disturbances; no nosebleeds; no hoarseness; no sore throat; no hearing lossSinusitis/AllergyReported bypatient.Onset/Timing:new onset Location:headache;facial pain Quality:no itching; no hoarseness; minimal discomfort;aching;dull Severity:limits daily activities Associated Symptoms:nasal stuffiness Katelyn garcia, [facility], 05/20/2016 14:21:33 08/09/19 17 text/htm l medical problems chronic & stablepatient still has ataxia, dystonia, limited mobility due to this chronic, lifelong illnessstill requiring use of wheelchair on a regular basis follows with neuro on PRN basis BM 1x Q3 daysdiscussed high fiber diet as pt states she does not eat well: chicken fingers, carbs, etc Mackenzie Claudio, DO [address] [facility], [place], [address], [facility], 08/08/2016 14:48:49 11/01/19 17 text/htm l Annual Wellness VisitReported bypatient.Diet and Nutrition:healthy diet;diet is high in salt;diet is high in fat, low in fiber;high carbohydrate meals Fracture Risk:no history of fractures; no recent explained fracture; no sudden unexplained fractures;previous musculoskeletal injuries Physical Activity:exercises on a regular basis; recent increase in physical activity; good physical condition; discussed weightbearing activities; discussed exercise habits; TRX Depression Risk:never feels sad, empty, or tearful; no loss of interest in activities; no significant changes in weight; no sleep disturbances or insomnia; no agitation; no loss of energy; no feelings of worthlessness or guilt; no thoughts of suicide; no history of depression; no history of mood disorders Orientation:no disorientation to time; no disorientation to date; no disorientation to place Concentration and Memory:no decreased concentrating ability; no memory lapses or loss; does not forget words Speech/Motor difficulties:no difficulty expressing formulated concepts; no difficulty writing/copying; no slowed reaction time; does not knock things over when trying to pick them up;speech difficulties;difficulty with fine manipulative tasks; h/o Wilsons disease Hearing:no loss of hearing Vision:no vision problems Activities of Daily Living:able to bathe with limited or no assistance; able to contol urination and bowels; able to dress with limited or no assistance; able to feed self with limited or no assistance; able to get out of chair or bedwith limited or no assistance; able to groom with limited or no assistance; able to toilet with limited or no assistance Instrumental Activities of Daily Living:able to do house work with limited or no assistance; able to grocery shop with limited or no assistance; able to manage medications with limited or no assistance; able to manage money with limited or no assistance; able to prepare meals with limited or no assistance; able to use the phone with limited or no assistance Falls Risk Assessment:no frequent falls while walking; no fall in the past year; no fall since last visit; no dizziness/vertigo Home Safety:no unsafe cj hazzards; no unsafe stairs; no unsafe gas appliances; working smoke/CO detectors; wears protective head gear for biking/high velocity; use of seatbelts; practicing 'safer sex'; no vision or hearing loss while driving; no fire arms; has hand bars in the bathroom/shower; good lighting in the homeAnxiety/DepressionReporte d bypatient.Severity:denies suicidal ideations; able to maintain relationships; does not interfere with activities of daily living Context:no major life stressors Associated Symptoms:denies homicidal ideations; no significant weight gain; no significant weight loss; no visual/auditory hallucinations; no delusions; no shortness of breath; mood good; no anxiety; no crying spells; no panic; no isolation; sleeping well; appetite good; energy good; no apathy; maintaining functionalityKneeReported bypatient.Location:left Quality:gnawing; dull; frequent Severity:moderate Duration:continuous since onset Timing:chronic; recurrent Context:overuse Alleviating Factors:position change; rest; OTC medication Aggravating Factors:ROM; going from sit to stand Associated Symptoms:no weakness; no numbness; no tingling; no swelling; no redness; no warmth; no ecchymosis; no popping/clicking; no buckling; no radiation down leg; no drainage; no fever; no chills; no weight loss; no change in bowel/bladder habits;catching/locking;insta bility Previous Surgery:none Previous PT:helped significantly Mackenzie Claudio, DO [address] [place], [address], [facility], 10/31/2016 08:38:18 03/03/19 text/htm l InsomniaReported bypatient.Quality:symptoms worse in the evening Severity:same Context:using medications for sleep Associated Symptoms:no known sleep apnea; no pain; no dyspnea; no urinary frequency; legs do not feel restless;anxiety;depressionNo holli:muscle spasms everywhere Katelyn garcia [facility], 03/03/2017 13:27:34 06/01/19 text/htm l Urinary FrequencyReported bypatient.Quality:symptoms worse in the evening; symptoms worse during the day Severity:moderate Duration:every 30 minutes; yesterday Onset/Timing:sudden Context:success with short term antibiotics; success with alf antibiotics Associated Symptoms:no abdominal pain; no back pain; no chills; no constipation; no diarrhea; no dribbling; no pain with urination; normal emptying of bladder; no blood in the urine; no hesitancy; normal libido; no nausea; no vomiting; no nocturia; no urine odor; no straining; no incontinence; no fever; no feelings of urgency; no urge incontinence Katelyn garcia [facility], 05/31/2017 11:27:01 OBGyn Episode No OBEpisode recorded.
--- OUTSIDE RECORDS SUMMARY | 2024-04-23 09:43 | XMS_ITS | Continuity of Care Document ---
Author Organization [place] - [facility], [facility] Address [address] [place] [phone] Assessment No assessment recorded. Plan of Treatment Reminders Order Date Submit Date Provider Last Modified By Organization Details Last Modified Time Details Appointments None record ed. Lab None record ed. Referral None record ed. Procedures None record ed. Surgeries None record ed. Imaging None record ed. Medication Orders None record ed. Patient TargetsNo targets recorded. Patient InstructionsNo instructions recorded. Reason for Referral None Reported. Problems Name Problem SNOMED Code Status Onset Date Resolution Date Notes Provider Name and Address Organization Details Recorded Time Hematoma of left pinna [id number] 2 Active 2024 SANDRA ROMO MD [address] [place] [address], [phone], [place] [facility] 13:50:38 Problem Notes None recorded. Procedures Surgical History Date Name Laterality Status Provider Name and Address Organization Details Recorded Time Auricular hematoma left I&D w bolster completed SANDRA ROMO MD [address] [place] [address], [phone], [facility] 03/25/2024 13:50:23 Imaging Results None recorded. Procedure Notes None recorded. Medical Equipment None Reported. Allergies Allergen ID Allergen Name Allergen Category Reaction Reaction Severity Criticality Documentation Date Start Date Code Code System Note Provider Name and Address Organization Details Recorded Time 077382 Product containin g penicilli n (product) medicatio n rash Not available low 03/25/2024 40140 8001 SNOMED Lacey garcia [place] - [facility] 5 13:12:34 Medications Name Sig Start Date Stop [...] Updated DateTime 03/29/2024 165.1 cm 20.8 kg/m2 48682.05 g Clarice Dillard [place] - [facility] 03/29/2024 13:32:43 Social History Question Answer Notes [...] Disorder Y Anesthesia Complications N Heart Attack ([place]) N Other Skin Condition N Diabetes N Rhinitis N Bleeding Disorder N Food Allergy N Arthritis Y Hearing Loss N Hyperlipidemia N Cancer N Stroke N Dementia N Nasal polyps N Asthma N High Cholesterol N Sleep Disorder N GERD/Reflux N Liver Disease N Headaches Y Fibromyalgia N Hypertension Y Speech Delay N Kidney Disease N Gynecological HistoryNo gynecological history recorded. Obstetrics History GPAL:G 0 P 0 0 0 0 Past Encounters Encounter ID Performer Location Encounter Start Date Encounter Closed Date Diagnosis/Indication Diagnosis SNOMED-CT Code Diagnosis ICD10 Code Diagnosis Note [id number] SANDRA ROMO MD [facility] [address] [place] [address] 03/25/2024 12:43:06 03/25/2024 13:53:12 Hematoma of left pinna [id number] H61.122 38-year-ol d female with history of [...] days to remove the dressing and reassess. [id number] SANDRA ROMO MD [facility] of [address] [phone] 03/29/2024 13:25:35 03/29/2024 15:37:55 Hematoma of left pinna [id number] 747517 H61.122 Bolster removed. There is no recurrence [...] Member ID Peterson Member ID Guarantor Name 03/29/2024 1 [facility] - DOS ON OR AFTER 2022 - ONE CARE (MEDICARE REPLACEMENT/ADV ANTAGE - HMO) Sultana Vaca [id number] Ronel Vaca Notes Date Note Type Note Provider Name and Address Organization Details Recorded Time 03/29/2024 text/html 38 yo F here for followup of auricular hematoma. SANDRA ROMO MD [address] [place] [address], [place], [phone], [place] [facility] 03/29/2024 15:30:36 OBGyn Episode No OBEpisode recorded.
--- OUTSIDE RECORDS SUMMARY | 2024-04-23 09:43 | XMS_ITS ---
Author Name [facility] Organization Unknown Encounters Encounter Type Encounter Reason Primary Diagnosis Location Date Ambulatory [facility] 12/08/2022
--- OUTSIDE RECORDS SUMMARY | 2024-04-23 09:43 | XMS_ITS | Clinical Summary ---
Author Organization [facility] it Address [address] [place] [address] Care Team Providers Care Consulting Practice Director Name Role Phone Rach Davis MD Primary Care Prov ider Allergies Active Allergy Reactions Criticality Noted Date Comments Penicillin G Hives 08/31/2017 Medications deutetrabenazin e (Austedo) 6 mg tablet Take 1 tablet by mouth 2 (two) times a day. 0 Active onabotulinumtox Otis (Botox) 200 unit injection 3 Active citalopram (CeleXA) 20 mg tablet Take 1 tablet (20 mg total) by mouth 1 (one) time each day. 3 Active clonazePAM (KlonoPIN) 0.5 mg tablet Take 0.5 mg by mouth daily. Active cyclobenzaprine (FLEXERIL) 10 mg tablet Take 1 tablet (10 mg total) by mouth 3 (three) times a day if needed for muscle spasms. 2 Active diclofenac (VOLTAREN) 1 % topical gel USE DIRECTED ON THE HANDS TOPICALLY TWICE DAILY 2 Active zinc acetate (Galzin) 25 mg (zinc) capsule Take 2 Capsules by mouth 2 times daily. 2 Active meloxicam (MOBIC) 7.5 mg tablet Take 1 Tablet by mouth as needed for Pain. 0 Active senna (SENOKOT) 8.6 mg tablet TAKE 1 TABLET BY MOUTH 2 TIMES DAILY NEEDED (CONSTIPATION) . 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/2024): Dr Taylor in [facility] Dystonia 08/31/2017 Overview (01/30/2024): Follows with Dr See Osteoarthritis 08/31/2017 Overview (01/30/2024): Left knee and torn meniscus in the left- Dr Abreu Anxiety 08/31/2017 Immunizations Name Administration Dates Next Due Influenza Quadravalent, MDCK , 0.5ml, preservative free (Flucelvax) 6mo and older 10/29/2021,10/17/2019 Influenza trivalent, 0.5mL, preservative free (Fluarix; FluLaval; Fluzone) ages 6mo and older (Afluria) 3 years and older 11/18/2020,10/09/2018,10/12/2015 Influenza trivalent, with pr eservative (Fluzone; Afluria) 6mo and older 10/09/2018,10/20/2017,10/12/2015,12/08 Pfizer Covid-19 Bivalent, Or iginal + Ba.1 (Non-[employer] Apollidon Bivalent) 10/29/2021 Pneumococcal polysaccharide 23 valent (Pneumovax 23) 2yo and older 10/11/2019 Surgical History Surgery Date Site/Laterality Comments OTHER SURGICAL HISTORY PROCEDURE: ---- OTHER ----; COMMENT: exploratory lap at 8 yrs Medical History Medical History Date Comments Dystonia 08/31/2017 DX:Dystonia 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/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 Osteoarthritis 08/31/2017 DX:Osteoarthriti s Anxiety 08/31/2017 DX:Anxiety Family History Medical History Relation Name Comments Ovarian cancer Mother Relation Name Status Comments Father Alive Mother Alive Social History Tobacco Use Types Packs/Day Years Used Date Smoking Tobacco: Never Smokeless Tobacco: Never Alcohol Use Standard Drinks/Week Comments No 0 (1 standard drink = 0.6 oz pur e alcohol) Comments Unknown Sex and Gender Information Value Date Recorded Sex Assigned at Not on file Legal Sex Female 9:37 AM EST Gender Identity Not on file Sexual Orientation Not on file Obstetrics History Last Filed Vital Signs Vital Sign Reading Time Taken Comments Blood Pressure 102/70 09/25/2023 7:57 AM EDT Pulse 110 09/25/2023 7:57 AM EDT Temperature - - Respiratory Rate - - Oxygen Saturation - - Inhaled Oxygen Concentration - - Weight 56.5 kg (124 lb 9.6 oz) 09/25/2023 7:57 A M EDT Height 165.1 cm (5' 5 ) 09/25/2023 7:57 AM EDT Body Mass Index 20.73 09/25/2023 7:57 AM EDT Plan of Treatment Upcoming Encounters Date Type Department Care Team (Late st Contact Info) Description 09/26/2024 3:00 PM EDT Office Visit Adult Medicine [address] [phone] Rach Davis MD [address] [place] [id number] 11/12/2024 3:30 PM EDT Appointment Radiology Department - [address] [phone] Health Maintenance Due Date Last Done Comments DTaP,Tdap,and Td Vaccines (1 - Tdap) 10/03/2002 Hepatitis B Vaccines (1 of 3 - 19+ 3-dose series) 10/03/2002 Pneumococcal Vaccine: Pediatrics (0 to 5 Years) and At-Risk Patients (6 to 64 Years) (2 of 2 - PCV) 10/10/2020 10/11/2019 Depression Screening 01/22/2022 HIV Screening 01/22/2022 Hepatitis C Screening 01/22/2022 Social Influencers of Health Screening 01/22/2022 COVID-19 Vaccine ( season) 2023 10/29/2021, 02/16/2021, 05/31/2020, Additional history exists Influenza Vaccine (#1) 2023 2, 11/18/2020, 10/17/2019, Additional history exists Breast Cancer Screening 10/26/2025 10/27/2023, 10/26 Cervical Cancer Screening: HPV 07/16/2027 07/15/2022 Cholesterol Screening (Lipid Panel) 01/18/2028 01/17/2023 HIB Vaccines Aged Out No longer eligi ble based on patient's age to complete this topic HPV Vaccines Aged Out No longer eligi ble based on patient's age to complete this topic Hepatitis A Vaccines Aged Out No long er eligible based on patient's age to complete this topic IPV Vaccines Aged Out No longer eligi ble based on patient's age to complete this topic MMR Vaccines Aged Out No longer eligi ble based on patient's age to complete this topic Meningococcal ACWY Vaccine Aged Out N o longer eligible based on patient's age to complete this topic Meningococcal B Vacine Aged Out No lo nger eligible based on patient's age to complete this topic RSV Immunization Patients Under 20 months Aged Out No longer eligible based on patient's age to complete this topic Varicella Vaccines Aged Out No longer eligible based on patient's age to complete this topic Procedures Procedure Name Priority Date/Time Associated Diagnosis Comments SCREENING MAMMOGRAPHY BI 2-VIEW BREAST INC CAD Routine 10/27/2023 2:53 PM EDT Encounter for general adult medical examination without abnormal findings LIPID PANEL Routine 01/17/2023 HM HPV Routine 07/15/2022 from Last 3 Months or Most Recently Relevant to Health Maintenance Results * SCREENING MAMMOGRAPHY BI 2-VIEW BREAST INC CAD (10/27/2023 2:53 PM EDT) Anatomical Region Laterality Modality Radiographic Mora ging 09/25/2023 8:15 AM EDT Narrative 10/27/2023 2:55 PM EDT This is a summary report. The complete report is available in the patient's medical record. If you cannot access the medical record, please contact the sending organization for a detailed fax or copy. Full field digital baseline tomosynthesis mammography, reviewed with CAD. The breast tissue is heterogeneously dense, limiting sensitivity. No suspicious mass, architectural distortion or suspicious calcifications are identified. IMPRESSION: : Dense breast tissue, limiting the sensitivity of mammography. No mammographic evidence of malignancy. BIRADS 1-Negative; N. Breast density: The breasts are heterogeneously dense, which may obscure small masses. 5 year breast cancer risk assessment 0.6 % Lifetime breast cancer risk assessment 11.1 % Breast cancer risk category Low (<15%) Location: [facility], [address] [place] [address], [address], [phone] Procedure Note Geovanna Carrera MD - 11/29/2023 This is a summary report. The complete report is available in thepatient's medical record. If you cannot access the medical record, pleasecontact the sending organization for a detailed fax or copy. Full field digital baseline tomosynthesis mammography, reviewed with CAD.The breast tissue is heterogeneously dense, limiting sensitivity. Nosuspicious mass, architectural distortion or suspicious calcifications areidentified. IMPRESSION: : Dense breast tissue, limiting the sensitivity of mammography. Nomammographic evidence of malignancy. BIRADS 1-Negative; N. Breast density: The breasts are heterogeneously dense, which may obscuresmall masses. 5 year breast cancer risk assessment 0.6 % Lifetime breast cancer risk assessment 11.1 % Breast cancer risk category Low (<15%) Location: [facility], [address] [place] [address], [address], [phone] Rach Davis MD IMG XR PROCEDURES Final Result * Lipid panel (01/17/2023) Pathologist [facility] Triglycerides 100 <=150 mg/dL Cholesterol 183 <=200 mg/dL HDL 69 >=39 mg/dL LDL Cholesterol 97 0 - 130 mg/dL Blood Venous blood specimen / Unknown Historical Provider LAB BLOOD ORDERABLES Beatris l Result * Cervical Cancer Screening: HPV (07/15/2022) Pathologist [facility] Cervical Cancer Screening: HPV negative, abstracted us Historical Provider HEALTH MAINTENANCE Final Result from Last 3 Months or Most Recently Relevant to Health Maintenance Care Teams Consulting Practice Director Relationship Specialty Start Date End Date Rach Davis MD PCP - General Internal Medicine 10/28/21
--- OUTSIDE RECORDS SUMMARY | 2024-04-23 09:43 | XMS_ITS | Clinical Summary ---
Author Organization [facility] Address [address] [place] [address] Care Team Providers Care Donor Services Technician Name Role Phone Unavailable Primary Care Provider Unavailabl e Allergies Active Allergy Reactions Criticality Noted Date Comments Penicillins Urticarial Rash Medium 01/25/2013 Medications Citalopram Hydrobromide 10 MG Tab 1 TABLET DAILY Active ClonazePAM 0.5 MG Tab 1 TABLET DAILY Active Norethindrone Acet-Ethinyl Est (MICROGESTIN) 1.5-30 MG-MCG Tab 1 TABLET DAILY Active Multiple Vitamins-Minerals (MULTI VITAMIN/MINERALS) Tab 1 a day Active Active Problems Problem Noted Date Diagnosed Date Dystonia 01/25/2013 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 Underweight 01/25/2013 Rash 01/25/2013 Immunizations Name Administration Dates Next Due Influenza,seasonal,trivalent,preservative (FLUZO NE MDV) 12/08/2010 Family History Medical History Relation Name Comments Stroke Father Stroke Paternal grandfather Relation Name Status Comments Father Paternal grandfather Social History Tobacco Use Types Packs/Day Years Used Date Smoking Tobacco: Never Alcohol Use Standard Drinks/Week Comments Yes 0 (1 standard drink = 0.6 oz pur e alcohol) occasional Comments No Sex and Gender Information Value Date Recorded Sex Assigned at Not on file Legal Sex Female 10:11 AM EST Gender Identity Not on file Sexual Orientation Not on file Last Filed Vital Signs Vital Sign Reading Time Taken Comments Blood Pressure 116/77 01/25/2013 2:28 PM EST Pulse 83 01/25/2013 2:28 PM EST Temperature 37.1 ??C (98.7 ??F) 01/25/2013 2:28 PM ES T Respiratory Rate - - Oxygen Saturation - - Inhaled Oxygen Concentration - - Weight 47.6 kg (105 lb) 01/25/2013 2:28 PM EST Height 165.1 cm (5' 5 ) 01/25/2013 2:28 PM EST Body Mass Index 17.47 01/25/2013 2:28 PM EST Plan of Treatment Health Maintenance Due Date Last Done Comments Hepatitis C Screening 1983 Pap Smear 1999 DTaP/Tdap/Td (1 - Tdap) 10/03/2001 Hep B (1 of 3 - 19+ 3-dose series) 10/03/2002 Mammogram/Breast Imaging 2023 COVID-19 Vaccine ( - 2023-2 5 season) 2023 Influenza (#1) 2023 12/08/2010 Zoster (Shingrix) (1 of 2) 10/03/2033 HPV Vaccine Aged Out No longer eligi ble based on patient's age to complete this topic Hep A Aged Out No longer eligi ble based on patient's age to complete this topic Hib Aged Out No longer eligi ble based on patient's age to complete this topic Meningococcal ACWY Aged Out No longer eligible based on patient's age to complete this topic Pneumococcal Aged Out No longer eligi ble based on patient's age to complete this topic
== END 2024-04-23 09:15 | disposition home or self-care (01) ==
LOC: HO.HSMS 08:51
PROVIDERS: PCP Internal Medicine; Visit Provider Psychiatry & Neurology Neurology
DX: G24.3 Spasmodic torticollis (principal)
CPT/HCPCS: 64616

== ENCOUNTER → 2024-04-23 08:50 | Outpatient (BNVA) | payer OTHER, SELFPAY | PROVIDERS: PCP Internal Medicine; Visit Provider Psychiatry & Neurology Neurology | DX: E83.01 Wilson's disease (principal); G24.3 Spasmodic torticollis | CPT/HCPCS: 64616; 99211; J0585 ==

== ENCOUNTER 2024-07-30 08:53 | Outpatient (AMB) | payer OTHER, SELFPAY ==
[2024-07-30 09:01] VITALS: BP 124/90; PULSE 129; O2SAT 98; BMI 19.3
--- NOTE | 2024-07-30 09:01 | MHC.OFFVIS ---
Vital Signs 07/30/24 09:01 Height 5 ft 5 in Weight 116 lb BMI 19.3 BP 124/90 H Blood Pressure Location Rt brachial Position Sitting Pulse 129 H Pulse Source Pulse Oximeter Pulse Oximetry (%) 98 Oxygen Delivery Method Room Air Intake Visit Reasons: Botox Intake Note: Patient presents for botox injection. practice supplied Allergies Penicillins Allergy (Verified 07/30/24 09:01) Hives Medication List - Last Reconciled 07/30/24 by Corinna See MD [cane As directed] citalopram 20 mg PO DAILY clonazepam 0.5 mg PO BEDTIME 30 days cyclobenzaprine 1 tab qhs and extra 1/2 tab as needed at bedtime orally bedtime; 1 tab at bedtime , extra 1/2 tab as needed at bed time deutetrabenazine (Austedo) 2 tabs qam and 1 tab qhs PO .twice a day; gabapentin 1-3 caps orally bedtime; lorazepam 0.5 mg PO DAILY PRN meloxicam 7.5 mg PO DAILY norgestimate-ethinyl estradiol 0.25-0.035 mg 1 tab PO DAILY onabotulinumtoxinA (Botox) to be injected to neck muscles q 3 months by physician; sennosides (senna) 8.6 mg PO DAILY PRN zinc acetate (Galzin) 50 mg PO BID HPI Comments Details: 38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 Trientene was stopped by GI . ??? Side effects including spread of toxin effect, dysphagia, breathing difficulties , bronchitis etc was discussed in detail and the patient agreed to the procedure.An informed consent was obtained ??? Botulinum toxin type A 200units -was diluted with 4 cc of normal saline at a concentration of 25 units in 0.5cc saline. Lot number [id number] expiration 11/2026 ??? Muscles injected ?Right Splenius 25 units Right Levator 50 units Right semispinalis - 25 units Sunny trapezius 25 units each Left Levator 50 units ??? Total used 200 units [facility] Medical History Cervical dystonia Wilsons disease Surgical History History of surgery of liver Social History Alcohol intake: never Patient Tobacco Use Status: Never used Tobacco Physical Exam Vital Signs: Last Vital Signs Pulse 129 H 07/30/24 09:01 BP 124/90 H 07/30/24 09:01 Pulse Ox 98 07/30/24 09:01 Oxygen Delivery Method Room Air 07/30/24 09:01 BMI result Body Mass Index 19.3 Const Other: antecollis and left laterocollis General: cooperative Nutritional Appearance: average body habitus Orientation/consciousness: patient oriented x3 Neuro Other: Slowed speech. . Cervical dystonia. Dystonia in upper and lower extremities. Gait mildly off balance General: patient oriented x3 Office Procedures Botulinum toxin Injection 62688 - Dystonia Procedure code (CPT) selection complete Office Meds onabotulinumtoxinA 200 unit solution for injection Performing Provider: Croinna See MD Performing Location: [facility] Administered by: Corinna See MD on 07/30/24 09:26 Dose Route Admin Location Dispensed Lot Number Expiration Date [facility] Stave Cutting Supervisor 200 unit IM 200 units [id number] ALLERGAN/BOTOX Comments: see hpi Assessment & Plan Assessment & Plan (1) Cervical dystonia: Code(s): G24.3 - Spasmodic torticollis Category: Medical (2) 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 Category: Medical Plan zinc 50mg 2tabs bid citalopram 20mg qd Patient tolerated the procedure well she will call with any side effects Patient will benefit from Massage therapy to her neck muscles 2 times a month to relive tightness stiffness and discomfort Orders: Orders AMB Botulinum toxin Injection Today G24.3 - Spasmodic torticollis Medications: New onabotulinumtoxinA 200 units IM ONCE 1 ea 0RF cervical dystonia G24.3 - Spasmodic torticollis Coding Level of Care Code Est Pt Level 1 (25410) Diagnoses Cervical dystonia G24.3 Wilsons disease E83.01 CPT Codes Botox Injection - Botox 4: 96817 - Dystonia ([id number])
--- OUTSIDE RECORDS SUMMARY | 2024-07-30 09:24 | XMS_ITS | Data Portability ---
Author Organization [place] - [facility], Allergy Address [address] [place] [phone] Assessment No assessment recorded. Plan of Treatment Reminders Order Date Submit Date Provider Last Modified By Organization Details Last Modified Time Details Appointments None recorded. Lab None recorded. Referral None recorded. Procedures None recorded. Surgeries None recorded. Imaging None recorded. Medication Orders clindamycin HCl 300 mg capsule 2024 025 [facility] #[id number], [address] [place], [address], 13:51:41 Patient TargetsNo targets recorded. Patient InstructionsNo instructions recorded. Reason for Referral None Reported. Problems Name Problem SNOMED Code Status Onset Date Resolution Date Notes Provider Name and Address Organization Details Recorded Time Hematoma of left pinna [id number] 2 Active 2024 SANDRA ROMO MD [address] [place] [address], [phone], [facility] 13:50:38 Problem Notes None recorded. Procedures Surgical History Date Name Laterality Status Provider Name and Address Organization Details Recorded Time Auricular hematoma left I&D w bolster completed SANDRA ROMO MD [address] [place] [address], [phone], [facility] 03/25/2024 13:50:23 Imaging Results None recorded. Procedure Notes None recorded. Medical Equipment None Reported. Allergies Allergen ID Allergen Name Allergen Category Reaction Reaction Severity Criticality Documentation Date Start Date Code Code System Note Provider Name and Address Organization Details Recorded Time 749297 Product containin g penicilli n (product) medicatio n rash Not available low 03/25/2024 58732 7110 SNOMED Lacey garcia [place] - [facility] 13:12:34 Medications Name Sig Start Date Stop Date Status Note LastModified by Organization Details LastModified Time cyclobenzap rine 10 mg tablet active Not Available Not Available Not Available Galzin 50 mg (zinc) capsule TAKE 1 CAPSULE BY MOUTH TWICE A DAY active Not Available Not Available No t Available norgestimat e 0.25 mg-ethinyl estradiol 0.035 mg tablet TAKE 1 TABLET BY MOUTH [...] Updated DateTime 03/25/2024 165.1 cm 20.8 kg/m2 65862.05 g Lacey Faulkner [place] - [facility] 03/25/2024 13:11:56 Date Recorded Body height Body mass index (BMI) Body weight Provider Name and Address Organization Details Last Updated DateTime 03/29/2024 165.1 cm 20.8 kg/m2 11440.05 g Clarice Dillard [place] - [facility] 03/29/2024 13:32:43 Social History None recorded. Functional Status Question Answer Note LastModified by Organizat ion Details LastModified Time Do you use any illicit or recreational drugs? No Information not available 03/25/2024 Do you or have you ever used any other forms of tobacco or nicotine? No Information not available 03/25/2024 Mental Status None recorded. Family History Nothing Reported. Medical History Condition Response Allergies/Hayfever N Heart Problems N Anxiety N Tonsil Infections N Emphysema N Migraines Y Thyroid Problems N Glaucoma N Depression N COPD N Developmental Delay N Nasal or Sinus Problems N Anemia N Immune System Disorder Y Anesthesia Complications N Heart Attack ([place]) N Other Skin Condition N Diabetes N [...] SNOMED-CT Code Diagnosis ICD10 Code Diagnosis Note [id number] SANDRA ROMO MD [facility] [address] [place] [phone] 03/25/2024 12:43:06 03/25/2024 13:53:12 Hematoma of left pinna [id number] H61.122 38-year-ol d female with history of [...] days to remove the dressing and reassess. [id number] SANDRA ROMO MD [facility] [address] [place] [phone] 03/29/2024 13:25:35 03/29/2024 15:37:55 Hematoma of left pinna [id number] 087368 H61.122 Bolster removed. There is no recurrence of fluctuance , but there is still little thickening at the site of hematoma. Follow-up for any worsening. Health Concerns Section Related Observation LastModified by Organization Detai ls LastModified Time None Recorded Concern Status LastModified by Organization Details LastModified Time None Recorded Advance Directives Directive None Recorded Payers Insurance Date Sequence Insurance Name Policy Number Policy Peterson Covered Member ID Peterson Member ID Guarantor Name 03/28/2024 1 [facility] (MEDICARE REPLACEMENT/ADV ANTAGE - HMO) Sultana Yun Nola [id number] Ronel Yun Nola 03/28/2024 1 [place] B-[place]: [facility] [employer] [facility] Ronel Vaca [id number] Ronel Vaca 03/29/2024 1 [facility] - DOS ON OR AFTER 2022 - [employer] (MEDICARE REPLACEMENT/ADV ANTAGE - HMO) Sultana Nola [id number] Ronel Yun Nola Notes Date Note Type Note Provider [...] aspirated at urgent care. SANDRA ROMO MD [address] [place] [address], [phone], [facility] - [facility] 03/27/2024 10:24:28 03/29/2024 text/html 38 yo F here for followup of auricular hematoma. SANDRA ROMO MD [address] [place] [address], [phone], [place] - [facility] 03/29/2024 15:30:36 OBGyn Episode No OBEpisode recorded.
== END 2024-07-30 09:20 | disposition home or self-care (01) ==
LOC: HO.HSMS 08:54
PROVIDERS: PCP Internal Medicine; Visit Provider Psychiatry & Neurology Neurology
DX: G24.3 Spasmodic torticollis (principal); E83.01 Wilson's disease
CPT/HCPCS: 64616

== ENCOUNTER → 2024-07-30 08:53 | Outpatient (BNVA) | payer OTHER, SELFPAY | PROVIDERS: PCP Internal Medicine; Visit Provider Psychiatry & Neurology Neurology | DX: G24.3 Spasmodic torticollis (principal); E83.01 Wilson's disease | CPT/HCPCS: 64616; 99211; J0585 ==

== ENCOUNTER 2024-10-30 10:53 | Outpatient (AMB) | payer OTHER, SELFPAY ==
[2024-10-30 10:58] VITALS: BP 122/80; PULSE 97; O2SAT 98; BMI 19.7
--- NOTE | 2024-10-30 10:58 | MHC.OFFVIS ---
Vital Signs 10/30/24 10:58 Height 5 ft 5 in Weight 118 lb 6 oz BMI 19.7 BP 122/80 Blood Pressure Location Rt brachial Position Sitting Pulse 97 Pulse Source Pulse Oximeter Pulse Oximetry (%) 98 Oxygen Delivery Method Room Air Intake Visit Reasons: Botox Intake Note: Botox Fur Mixer Required: No Accompanied by: Mother Allergies Penicillins Allergy (Verified 10/30/24 10:58) Hives Medication List - Last Reconciled 10/30/24 by Corinna See MD [cane As directed] citalopram 20 mg PO DAILY clonazepam 0.5 mg PO BEDTIME 30 days cyclobenzaprine 1 tab qhs and extra 1/2 tab as needed at bedtime orally bedtime; 1 tab at bedtime , extra 1/2 tab as needed at bed time deutetrabenazine (Austedo) 2 tabs qam and 1 tab qhs PO .twice a day; gabapentin 1-3 caps orally bedtime; lorazepam 0.5 mg PO DAILY PRN meloxicam 7.5 mg PO DAILY norgestimate-ethinyl estradiol 0.25-0.035 mg 1 tab PO DAILY onabotulinumtoxinA (Botox) to be injected to neck muscles q 3 months by physician; sennosides (senna) 8.6 mg PO DAILY PRN zinc acetate (Galzin) 50 mg PO BID HPI Comments Details: 39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 Trientene was stopped by GI . she was doing well with AUstedo - but her insurance denied and she ran out of it. ??? Side effects including spread of toxin effect, dysphagia, breathing difficulties , bronchitis etc was discussed in detail and the patient agreed to the procedure.An informed consent was obtained ??? Botulinum toxin type A 200units -was diluted with 4 cc of normal saline at a concentration of 25 units in 0.5cc saline. Lot number [id number] expiration 03/2027 ??? Muscles injected ?Right Splenius 25 units Right Levator 50 units Right semispinalis - 25 units Sunny trapezius 25 units each Left Levator 50 units ??? Total used 200 units [facility] Medical History Cervical dystonia Wilsons disease Surgical History History of surgery of liver Social History Alcohol intake: never Patient Tobacco Use Status: Never used Tobacco Physical Exam Vital Signs: Last Vital Signs Pulse 97 10/30/24 10:58 BP 122/80 10/30/24 10:58 Pulse Ox 98 10/30/24 10:58 Oxygen Delivery Method Room Air 10/30/24 10:58 BMI result Body Mass Index 19.7 Const Other: antecollis and left laterocollis General: cooperative Nutritional Appearance: average body habitus Orientation/consciousness: patient oriented x3 Neuro Other: Slowed speech. . Cervical dystonia. Dystonia in upper and lower extremities. Gait mildly off balance General: patient oriented x3 Office Procedures Botulinum toxin Injection 52343 - Dystonia Procedure code (CPT) selection complete Office Meds onabotulinumtoxinA 200 unit solution for injection Performing Provider: Corinna See MD Performing Location: [facility] Administered by: Corinna See MD on 10/30/24 11:31 Dose Route Admin Location Dispensed Lot Number Expiration Date [facility] [employer] 200 unit IM 200 units [id number] [employer]/BOTOX Total Dispensed Waste 200 units 0 % Comments: see HPI Assessment & Plan Assessment & Plan (1) Cervical dystonia: Code(s): G24.3 - Spasmodic torticollis Category: Medical (2) 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
--- OUTSIDE RECORDS SUMMARY | 2024-10-30 13:51 | XMS_ITS | Clinical Summary ---
Author Organization [facility] Address [address] [place] [address] Care Team Providers Care Commercial Lease Administrator Name Role Phone Unavailable Primary Care Provider [...] disease 01/25/2013 Underweight 01/25/2013 Rash 01/25/2013 Immunizations Immunization Administration Dates Next Due Influenza,seasonal,trivalent,preservative (FLUZO NE [...] 83 01/25/2013 2:28 PM EST Temperature 37.1 C (98.7 F) 01/25/2013 2:28 PM EST Respiratory Rate - - Oxygen Saturation - [...] series) 10/03/2002 Mammogram/Breast Imaging 2023 COVID-19 Vaccine (1 - 2023-2 5 season) 2024 Influenza (#1) 2024 12/08/2010 Zoster (Shingrix) (1 of 2) 10/03/2033 HPV Vaccine (No Doses Required) Completed Hep A Aged Out No longer eligi [...]
--- OUTSIDE RECORDS SUMMARY | 2024-10-30 13:51 | XMS_ITS | Clinical Summary ---
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 Will order routine blood tests. 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); Encounter for screening involving social determinants of health (SDoH); Screening for depression 08/07/2024 2:28 PM EDT - 08/07/2024 11:59 PM EDT Hospital Encounter XR - [address] [phone] Pain of right hip Discharge Disposition: Home or Self Care 08/05/2024 Telephone Adult Medicine [address] [phone] Rach Reyes MD from Last 3 Months Immunizations Name Administration Dates Next Due Influenza Quadravalent, MDCK , 0.5ml, preservative free (Flucelvax) 6mo and older 10/29/2021,10/17/2019 Influenza trivalent, 0.5mL, preservative free (Fluarix; FluLaval; Fluzone) ages 6mo and older (Afluria) 3 years and older 11/18/2020,10/09/2018,10/12/2015 Influenza trivalent, with pr eservative (Fluzone; Afluria) 6mo and older 10/09/2018,10/20/2017,10/12/2015,12/08 Pfizer Covid-19 Bivalent, Or iginal + Ba.1 (Non-Onzo Trademark [employer] Bivalent) 10/29/2021 Pneumococcal polysaccharide 23 valent (Pneumovax 23) 2yo and older 10/11/2019 Surgical History Surgery Date Site/Laterality Comments OTHER SURGICAL HISTORY PROCEDURE: ---- OTHER ----; COMMENT: exploratory lap at 8 yrs Medical History Medical History Date Comments Dystonia 08/31/2017 DX:Dystonia 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 No 08/07/2024 Food Access & Nutrition Answer Date Rec orded Do you have access to a vari ety of food including fruits and vegetables? Yes 08/07/2024 Health Literacy Answer Date Recorded How often do you need to hav e someone help you when you read instructions, pamphlets, or other written material from your doctor or pharmacy? Never 08/07/2024 Caregiver: How often do you need to have someone help you when you read instructions, pamphlets, or other written material from your doctor or pharmacy? Not on file 08/07/2024 Financial Risk Answer Date Recorded How hard is it for you to pa y for the very basics like food, housing, medical care, and air conditioning / heating? Not very hard 08/07/2024 Transportation Answer Date Recorded Has the lack of transportati on kept you from meetings, work, or from getting things needed for daily living? No Has the lack of transportati on kept you from medical appointments or from getting medications? No 08/07/2024 Social Isolation Answer Date Recorded How often do you feel lonely or isolated from th ose around you? Never 08/07/2024 Food Risk Answer Date Recorded Within the past 12 months we worried whether our food would run out before we got money to buy more. Never true 08/07/2024 Within the past 12 months th e food we bought just didn't last and we didn't have money to get more. Never true 08/07/2024 Dependent Care Answer Date Recorded Do you need help finding or paying for care for your loved ones. For example, early childhood educator aide or elderly care for an older adult? No 08/07/2024 Education Answer Date Recorded Do you think completing more education or training, like finishing a GED, going to college, or learning a trade, would be helpful for you? No 08/07/2024 Employment and Income Answer Date Recor ded During the last four weeks, have you been actively looking for work? No 08/07/2024 Living Situation Answer Date Recorded What is your living situation? 0 08/07/2024 Comments No Sex and Gender Information Value Date Recorded Sex Assigned at Not on file Legal Sex Female 9:37 AM EST Gender Identity Not on file Sexual Orientation Not on file Obstetrics History Last Filed Vital Signs Vital Sign Reading Time Taken Comments Blood Pressure 117/67 08/07/2024 2:06 PM EDT Pulse 94 08/07/2024 2:06 PM EDT Temperature 36.4 C (97.5 F) 08/07/2024 2:06 PM EDT Respiratory Rate 14 08/07/2024 2:06 PM EDT Oxygen Saturation - - Inhaled Oxygen Concentration - - Weight 53.7 kg (118 lb 6.4 oz) 08/07/2024 2:06 P M EDT Height 165.1 cm (5' 5 ) 08/07/2024 2:06 PM EDT Body Mass Index 19.7 08/07/2024 2:06 PM EDT Plan of Treatment Upcoming Encounters Date Type Department Care Team (Late st Contact Info) Description 11/12/2024 3:30 PM EDT Appointment Radiology Department [address] [phone] Health Maintenance Due Date Last Done Comments DTaP,Tdap,and Td Vaccines (1 - Tdap) 10/03/2002 Hepatitis B Vaccines (1 of 3 - 19+ 3-dose series) 10/03/2002 Pneumococcal Vaccine: Pediatrics (0 to 5 Years) and At-Risk Patients (6 to 49 Years) (2 of 2 - PCV) 10/10/2020 10/11/2019 HIV Screening 01/22/2022 Hepatitis C Screening 01/22/2022 Medicare Annual Wellness Visit 01/22/2022 COVID-19 Vaccine ( season) 2024 02/16/2021, 05/31/2020, 05/02/2020 Influenza Vaccine (#1) 2024 , 11/18/2020, 10/17/2019, Additional history exists Social Influencers of Health Screening 08/07/2025 08/07/2024 Breast Cancer Screening 10/26/2025 10/27/2023, 10/26 Cervical Cancer Screening: HPV 07/16/2027 07/15/2022 Cholesterol Screening (Lipid Panel) 01/18/2028 01/17/2023 Depression Screening Completed 08/07/2024 HIB Vaccines Aged Out No longer eligi [...] age to complete this topic Meningococcal B Vaccine Aged Out No l onger eligible based on patient's age to complete this topic RSV Immunization Patients Under 20 months Aged Out No longer eligible based on patient's age to complete this topic Varicella Vaccines Aged Out No longer eligible based on patient's age to complete this topic Procedures Procedure Name Priority Date/Time Associated Diagnosis Comments CBC WITH AUTO DIFFERENTIAL Routine 08/07/2024 2:52 PM EDT Adult general medical examination COMPREHENSIVE METABOLIC PANEL Routine 08/07/2024 2:52 PM EDT Adult general medical examination CBC AND DIFFERENTIAL Routine 08/07/2024 2:52 PM EDT Adult general medical examination THYROID STIMULATING HORMONE Routine 08/07/2024 2:52 PM EDT Adult general medical examination XR HIP 2-3 VIEWS RIGHT Routine 2:40 PM EDT Pain of right hip SCREENING MAMMOGRAPHY BI 2-VIEW BREAST INC CAD Routine 10/27/2023 2:53 PM EDT Encounter for general adult medical examination without abnormal findings LIPID PANEL Routine 01/17/2023 HM HPV Routine 07/15/2022 from Last 3 Months or Most Recently Relevant to Health Maintenance Results * (ABNORMAL) CBC auto differential (08/07/2024 2:52 PM EDT) WBC 11.5(H) 4.8 - 10.8 K/mcL LAB HEMETOLOGY METHOD 08/07/2024 4:31 PM EDT [facility] RBC 4.10 3.80 - 4.80 M/mcL LAB HEMETOLOGY METHOD 08/07/2024 4:31 PM EDT [facility] Hemoglobin 11.8 11.5 - 16.0 g/dL LAB HEMETOLOGY METHOD 08/07/2024 4:31 PM EDT [facility] Hematocrit 37.6 35.0 - 47.0 % LAB HEMETOLOGY METHOD 08/07/2024 4:31 PM [facility] MCV 92.4 79.0 - 98.0 FL LAB HEMETOLOGY METHOD 08/07/2024 4:31 PM [facility] MCH 29.0 27.0 - 32.0 pcg LAB HEMETOLOGY METHOD 08/07/2024 4:31 PM [facility] MCHC 31.4(L) 32.0 - 37.0 g/dL LAB HEMETOLOGY METHOD 08/07/2024 4:31 PM [facility] RDW 13.9 11.0 - 15.0 % LAB HEMETOLOGY METHOD 08/07/2024 4:31 PM [facility] Platelets 294 130 - 400 K/mcL LAB HEMETOLOGY METHOD 08/07/2024 4:31 PM [facility] MPV 12.3(H) 7.0 - 11.0 FL LAB HEMETOLOGY METHOD 08/07/2024 4:31 PM [facility] NRBC 0.0 <1.0 % LAB HEMETOLOGY METHOD 08/07/2024 4:31 PM [facility] NRBC Absolute 0.00 <0.10 K/mcL LAB HEMETOLOGY METHOD 08/07/2024 4:31 PM [facility] Neutrophils Relative 61.4 % LAB HEMETOLOGY METHOD 08/07/2024 4:31 PM [facility] Lymphocytes Relative 28.4 % LAB HEMETOLOGY METHOD 08/07/2024 4:31 PM [facility] Monocytes Relative 5.8 % LAB HEMETOLOGY METHOD 08/07/2024 4:31 PM [facility] Eosinophils Relative 3.6 % LAB HEMETOLOGY METHOD 08/07/2024 4:31 PM [facility] Basophils Relative 0.5 % LAB HEMETOLOGY METHOD 08/07/2024 4:31 PM EDT [facility] Immature Granulocytes Relative 0.3 % LAB HEMETOLOGY METHOD 08/07/2024 4:31 PM EDT [facility] Neutrophils Absolute 7.08(H) 1.50 - 7.00 K/mcL LAB HEMETOLOGY METHOD 08/07/2024 4:31 PM EDT [facility] Lymphocytes Absolute 3.28 1.00 - 5.00 K/mcL LAB HEMETOLOGY METHOD 08/07/2024 4:31 PM EDT [facility] Monocytes Absolute 0.67 0.20 - 1.00 K/mcL LAB HEMETOLOGY METHOD 08/07/2024 4:31 PM EDT [facility] Eosinophils Absolute 0.41 0.00 - 0.50 K/mcL LAB HEMETOLOGY METHOD 08/07/2024 4:31 PM EDT [facility] Basophils Absolute 0.06 0.00 - 0.20 K/mcL LAB HEMETOLOGY METHOD 08/07/2024 4:31 PM EDT [facility] Immature Granulocytes Absolute 0.03 0.00 - 0.03 K/mcL LAB HEMETOLOGY METHOD 08/07/2024 4:31 PM EDT [facility] Blood Venous blood specimen / Unknown Venipuncture / Unknown 08/07/2024 2:52 PM EDT 08/07/2024 2:52 PM EDT us Rach Davis MD LAB BLOOD ORDERABL ES Final Result [facility] [address] [place] [address], [place] [phone] * Thyroid stimulating hormone (08/07/2024 2:52 PM EDT) TSH 2.16 0.40 - 4.00 mcIU/mL LAB CHEMISTRY METHOD 08/07/2024 7:18 PM [facility] Blood Venous blood specimen / Unknown Venipuncture / Unknown 08/07/2024 2:52 PM EDT 08/07/2024 2:52 PM EDT us Rach Davis MD LAB BLOOD ORDERABL ES Final Result [facility] [address] [place] [address], [place] [phone] * (ABNORMAL) Comprehensive metabolic panel (08/07/2024 2:52 PM EDT) Sodium 139 133 - 145 mmol/L LAB CHEMISTRY METHOD 08/07/2024 6:56 PM [facility] Potassium 4.1 3.5 - 5.5 mmol/L LAB CHEMISTRY METHOD 08/07/2024 6:56 PM [facility] Chloride 106 96 - 110 mmol/L LAB CHEMISTRY METHOD 08/07/2024 6:56 PM [facility] CO2 28 21 - 32 mmol/L LAB CHEMISTRY METHOD 08/07/2024 6:56 PM [facility] Anion Gap 5 3 - 11 LAB CHEMISTRY METHOD 08/07/2024 6:56 PM [facility] Glucose 57(L) 70 - 100 mg/dL LAB CHEMISTRY METHOD 08/07/2024 6:56 PM [facility] BUN 13 5 - 25 mg/dL LAB CHEMISTRY METHOD 08/07/2024 6:56 PM [facility] Creatinine 0.76 0.50 - 1.10 mg/dL LAB CHEMISTRY METHOD 08/07/2024 6:56 PM [facility] eGFR 102 >=60 mL/min/1. 73m2 LAB CHEMISTRY METHOD 08/07/2024 6:56 PM EDT [facility] Comment:Calculation based on the Chronic Kidney Disease Epidemiology Collaboration (CKD-EPI) equation refit without adjustment for race. BUN/Creatinine Ratio 17.1 LAB CHEMISTRY METHOD 08/07/2024 6:56 PM EDT [facility] Calcium 8.5 8.5 - 10.5 mg/dL LAB CHEMISTRY METHOD 08/07/2024 6:56 PM EDT [facility] AST (SGOT) 20 10 - 42 unit/L LAB CHEMISTRY METHOD 08/07/2024 6:56 PM T [facility] ALT (SGPT) 17 10 - 60 unit/L LAB CHEMISTRY METHOD 08/07/2024 6:56 PM EDT [facility] Alkaline Phosphatase 69 42 - 121 unit/L LAB CHEMISTRY METHOD 08/07/2024 6:56 PM [facility] Total Protein 6.3 6.0 - 8.0 g/dL LAB CHEMISTRY METHOD 08/07/2024 6:56 PM EDT [facility] Albumin 3.5 3.2 - 5.0 g/dL LAB CHEMISTRY METHOD 08/07/2024 6:56 PM EDT [facility] Total Bilirubin 0.3 0.0 - 1.4 mg/dL LAB CHEMISTRY METHOD 08/07/2024 6:56 PM T [facility] Blood Venous blood specimen / Unknown Venipuncture / Unknown 08/07/2024 2:52 PM EDT 08/07/2024 2:52 PM EDT us Rach Davis MD LAB BLOOD ORDERABL ES Final Result [facility] [address] [place] [address], [place] [phone] * XR Hip 2-3 Views Right (08/07/2024 2:40 PM EDT) Anatomical Region Laterality Modality Lower Extremities, Hip Right Radiograp hic Imaging 08/07/2024 5:16 PM EDT Narrative 08/07/2024 5:17 PM EDT AP view of the pelvis. Right hip, 2 views. History pain. There is no evidence of fractures or dislocations. There are tiny calcifications adjacent to the lateral margins of the acetabular laterally. Incidental findings of constipation. CONCLUSIONS: No evidence of fractures or dislocations. Additional findings. -------- FINAL REPORT -------- Dictated By: Celine Sen Dictated Date: 08/07/2024 17:16 ET Assigned Physician: Celine Sen Reviewed and Electronically Signed By: Celine Sen Signed Date: 08/07/2024 17:17 ET Workstation ID: [id number] Transcribed By: Self Edit Transcribed Date: 08/07/2024 17:16 ET Procedure Note Celine Sen MD - 08/07/2024 AP view of the pelvis. Right hip, 2 views. History pain. There is no evidence of fractures or dislocations. There are tinycalcifications adjacent to the lateral margins of the acetabularlaterally. Incidental findings of constipation. CONCLUSIONS: No evidence of fractures or dislocations. Additionalfindings. -------- FINAL REPORT -------- Dictated By: Celine Sen Dictated Date: 08/07/2024 17:16 ET Assigned Physician: Celine Sen Reviewed and Electronically Signed By: Celine Sen Signed Date: 08/07/2024 17:17 ET Workstation ID: [id number] Transcribed By: Self Edit Transcribed Date: 08/07/2024 17:16 ET us Rach Davis MD IMG XR PROCEDURES Final Result * SCREENING MAMMOGRAPHY BI 2-VIEW BREAST INC [...] Breast cancer risk category Low (<15%) Location: [facility], [address] [place] [address], [phone], [phone] Procedure Note Geovanna Carrera MD - 11/29/2023 [...] Breast cancer risk category Low (<15%) Location: [facility], [address] [place] [address], [phone], [phone] us Rach Davis MD IMG XR PROCEDURES Final Result * Lipid panel (01/17/2023) Triglycerides 100 <=150 mg/dL Cholesterol 183 <=200 mg/dL HDL 69 >=39 mg/dL LDL Cholesterol 97 0 - 130 mg/dL Blood Venous blood specimen / Unknown Historical Provider LAB BLOOD ORDERABLES Beatris l Result * Cervical Cancer Screening: HPV (07/15/2022) Cervical Cancer Screening: HPV negative, abstracted Historical Provider HEALTH MAINTENANCE Final Result from Last 3 Months or Most Recently Relevant to Health Maintenance Insurance [facility] MEDICARE Member Subscriber Plan / Payer (Ef fective 2017-Present) Name:DEJA KESSLER Relation to Subscriber:Self Name:Deja Kessler Payer ID:[id number] Group ID:Not on file Type:Not on file Address: [place] [address] [place] [phone] Care Teams Tipple Supervisor Relationship Specialty Start Date End Date Rach Davis MD [address] [place] [phone] PCP - General Internal Medicine 10/28/21
--- OUTSIDE RECORDS SUMMARY | 2024-10-30 13:51 | XMS_ITS ---
Author Name [facility] Organization Unknown Encounters Encounter Type Encounter Reason Primary Diagnosis Location Date Ambulatory [facility] 12/08/2022 Care Team Organization Name Specialty Phone Email Start Date End Da ludwig [facility] 12/13/2022 12/13/2022
== END 2024-10-30 11:24 | disposition home or self-care (01) ==
LOC: HO.HSMS 10:53
PROVIDERS: PCP Internal Medicine; Visit Provider Psychiatry & Neurology Neurology
DX: G24.3 Spasmodic torticollis (principal); E83.01 Wilson's disease
CPT/HCPCS: 64616

== ENCOUNTER → 2024-10-30 10:53 | Outpatient (BNVA) | payer OTHER, SELFPAY | PROVIDERS: PCP Internal Medicine; Visit Provider Psychiatry & Neurology Neurology | DX: G24.3 Spasmodic torticollis (principal); E83.01 Wilson's disease | CPT/HCPCS: 64616; 99211; J0585 ==

== ENCOUNTER 2025-01-29 10:49 | Outpatient (AMB) | payer OTHER, SELFPAY ==
[2025-01-29 10:56] VITALS: BP 120/78; PULSE 85; O2SAT 98; BMI 19.3
--- NOTE | 2025-01-29 10:56 | MHC.OFFVIS ---
Vital Signs 01/29/25 10:56 Height 5 ft 5 in Weight 116 lb BMI 19.3 BP 120/78 Blood Pressure Location Rt brachial Position Sitting Pulse 85 Pulse Source Pulse Oximeter Pulse Oximetry (%) 98 Oxygen Delivery Method Room Air Intake Visit Reasons: Botox Intake Note: Botox 200 Freight Sales Broker Required: No Accompanied by: Mother Allergies Penicillins Allergy (Verified 01/29/25 10:56) Hives Medication List - Last Reconciled 01/29/25 by Corinna See MD [cane As directed] citalopram 20 mg PO DAILY clonazepam 0.5 mg PO BEDTIME 30 days cyclobenzaprine 1 tab qhs and extra 1/2 tab as needed at bedtime orally bedtime; 1 tab at bedtime , extra 1/2 tab as needed at bed time deutetrabenazine (Austedo) 2 tabs qam and 1 tab qhs PO .twice a day; deutetrabenazine (Austedo) 9 mg PO BID gabapentin 1-3 caps orally bedtime; lorazepam 0.5 mg PO DAILY PRN meloxicam 7.5 mg PO DAILY norgestimate-ethinyl estradiol 0.25-0.035 mg 1 tab PO DAILY onabotulinumtoxinA (Botox) to be injected to neck muscles q 3 months by physician; sennosides (senna) 8.6 mg PO DAILY PRN zinc acetate (Galzin) 50 mg PO BID HPI Comments Details: 39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 Trientene was stopped by GI . she was doing well with AUstedo - but her insurance denied and she ran out of it.Her dystnia worsened and her pain increased since AUTEDO was stopped . ??? Side effects including spread of toxin effect, dysphagia, breathing difficulties , bronchitis etc was discussed in detail and the patient agreed to the procedure.An informed consent was obtained ??? Botulinum toxin type A 200units -was diluted with 4 cc of normal saline at a concentration of 25 units in 0.5cc saline. Lot number [id number] expiration 04/2027 ??? Muscles injected ?Right Splenius 25 units Right Levator 50 units Right semispinalis - 25 units Sunny trapezius 25 units each Left Levator 50 units ??? Total used 200 units PFSH Medical History Cervical dystonia Wilsons disease Surgical History History of surgery of liver Social History Alcohol intake: never Patient Tobacco Use Status: Never used Tobacco Physical Exam Vital Signs: Last Vital Signs Pulse 85 01/29/25 10:56 BP 120/78 01/29/25 10:56 Pulse Ox 98 01/29/25 10:56 Oxygen Delivery Method Room Air 01/29/25 10:56 BMI result Body Mass Index 19.3 Const Other: antecollis and left laterocollis General: cooperative Nutritional Appearance: average body habitus Orientation/consciousness: patient oriented x3 Neuro Other: Slowed speech. . Cervical dystonia. Dystonia in upper and lower extremities. Gait mildly off balance General: patient oriented x3 Office Procedures Botulinum toxin Injection 65141 - Dystonia Procedure code (CPT) selection complete Office Meds onabotulinumtoxinA 200 unit solution for injection Performing Provider: Corinna See MD Performing Location: [facility] Administered by: Corinna See MD on 01/29/25 11:37 Dose Route Admin Location Dispensed Lot Number Expiration Date 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 she will benefit from restarting Austedo at 9 mg bid or XR 18 mg qd. Orders: Orders AMB Botulinum toxin Injection Today G24.3 - Spasmodic torticollis Medications: New deutetrabenazine (Austedo) 9 mg PO BID 60 tabs 6RF Refilled clonazepam administer 30 minutes before bedtime 0.5 mg PO BEDTIME 30 tabs 4RF 30 days zinc acetate (Galzin) 50 mg PO BID 60 caps 6RF cyclobenzaprine 1 tab qhs and extra 1/2 tab as needed at bedtime orally bedtime; 1 tab at bedtime , extra 1/2 tab as needed at bed time 45 tabs 3RF Discontinued gabapentin Discontinued Reason: Patient no longer taking 1-3 caps orally bedtime; 90 caps 0RF Coding Level of Care Code Est Pt Level 1 (45434) Diagnoses Cervical dystonia G24.3 Wilsons disease E83.01 CPT Codes Botox Injection - Botox 4: 97019 - Dystonia ([id number])
--- OUTSIDE RECORDS SUMMARY | 2025-01-29 14:01 | XMS_ITS | Clinical Summary ---
Author Organization [facility] Address [address] [place] [address] Care Team Providers Care Soakers Supervisor Name Role Phone Unavailable Primary Care Provider [...] Mammogram/Breast Imaging 2023 COVID-19 Vaccine (1 - 2024-2 6 season) 2024 Influenza (#1) 2024 12/08/2010 Zoster [...]
--- OUTSIDE RECORDS SUMMARY | 2025-01-29 14:01 | XMS_ITS | Patient Health Record ---
Author Organization [facility] Address [address] [place] [address] Care Team Providers Care Component Assembler Name Role Phone [facility] [place] [facility] Primary Care Provider Unavailable ROZ Awad Unavailable [phone] Allergies Allergen (clinical drug ingredient) Drug/Non Drug Allergy documented on EMR Reaction Allergy Type Onset Date Status Penicillin Unknown Drug Allergy Active Reason For Referral No Information Medications Medication SIG (Take, Route, Frequency, Duration) Notes Start Date End Date Status Senna 8.6 MG Tablet 1 tab(s) orally twic e daily Active clonazePAM 0.5 MG Tablet 1 tab(s) orally once daily Active Galzin 50 MG Capsule 1 cap(s) orally 2 t imes a day Active Sprintec 28 0.25-35 MG-MCG Tablet 1 tablet Orally Once a day; Duration: 28 day(s) Active Meloxicam 7.5 MG Tablet 1 tab(s) orally once a day prn; Duration: 30 day(s) prn Active Diclofenac Sodium 1 % Gel as directed to pically on the hands bid 06/16/2021 Active Citalopram Hydrobromide 10 M G Tablet 1 tab(s) orally once a day; Duration: 30 day(s) Active Austedo 6 MG Tablet 1 tab(s) orally 2 ti mes a day Active Cyclobenzaprine HCl 10 MG Tablet 1 tab(s) orally once a day Active Social History Tobacco Use: Social History Observation Description Date Details (start date - stop date) Never Smoker NA - NA Social History Tobacco Use: Social Info Question Answer Notes Smoking Are you a: never smoker Additional Details Category Social Info Options Details General Occupation: disabled asbestos exposure: no Past year's travels: None alcohol use: no drug use: no Coffee/Tea/Soda: no Marital Status single experience no Living with boyfriend Problems Problem Type SNOMED Code ICD Code Onset Dates Problem Status W/U Status Risk Notes Problem Primary osteoarthritis (196808933) Primary osteoarthritis involving multiple joints (M89.49) Active confirmed Plan Of Treatment No Information Insurance Providers Payer Name Payer Address Payer Phone Subscriber Number Group Number Insured Name Patient Relationship to Insured Coverage Start Date Coverage End Date [facility] [address] [place] [phone] [id number] DEJA KESSLER Self - patient is the insured Medications Administered Medication Instructions Date of Administration Dosage Notes Triamcinolone Acetonide, mul ti-dose vial, 04/14/2022 40 mg Medical (General) History Medical History History ICD Code headaches Liver disease Wilsons Disease dystonia Dysarthria Surgical History Surgery Date(Month/Year) exlporatory liver surgery 1995
--- OUTSIDE RECORDS SUMMARY | 2025-01-29 14:01 | XMS_ITS | Clinical Summary ---
Author Organization 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 Will order routine blood tests. Orders: Comprehensive metabolic panel; Future CBC and differential; Future Thyroid stimulating hormone; Future Dystonia 08/31/2017 Overview (01/30/2024): Follows with Dr See Osteoarthritis 08/31/2017 Overview (01/30/2024): Left knee and torn meniscus in the left- Dr Abreu Anxiety 08/31/2017 Encounters Date Type Department Care Team Description 11/14/2024 Results Follow-Up Adult Medicine [address] [phone] Rach Reyes MD 11/12/2024 3:27 PM EDT - 11/12/2024 11:59 PM EDT Hospital Encounter Radiology Department - [address] [phone] Encounter for screening mammogram for breast cancer Discharge Disposition: Home or Self Care 11/12/2024 Telephone Adult Medicine [address] [phone] Rach Reyes MD from Last 3 Months Immunizations Immunization Administration Dates Next Due Influenza Quadravalent, MDCK , 0.5ml, preservative free (Flucelvax) 6mo and older 10/29/2021,10/17/2019 Influenza trivalent, 0.5mL, preservative free (Fluarix; FluLaval; Fluzone) ages 6mo and older (Afluria) 3 years and older 11/18/2020,10/09/2018,10/12/2015 Influenza trivalent, with pr eservative (Fluzone; Afluria) 6mo and older 10/09/2018,10/20/2017,10/12/2015,12/08 Pfizer Covid-19 Bivalent, Or iginal + Ba.1 (Non-[employer] KitchIn Bivalent) 10/29/2021 Pneumococcal polysaccharide 23 valent (Pneumovax 23) 2yo and older 10/11/2019 Surgical History Surgery Date Site/Laterality Comments OTHER SURGICAL HISTORY PROCEDURE: ---- OTHER ----; COMMENT: exploratory lap at 8 yrs Medical History Medical History Date Comments Dystonia 08/31/2017 DX: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 For example, child care associate or elderly care for an older adult? [...] Date Recorded What is your living situation? Unrecognized valu e 08/07/2024 Comments No Sex and Gender Information Value Date Recorded Sex Assigned at Not on file Legal Sex Female 9:37 AM EST Gender Identity Not on file Sexual Orientation Not on file Obstetrics History Para Term AB IAB SAB Ectopic Multiple Livin g Live Births 0 0 0 0 Last Filed Vital Signs Vital Sign Reading [...] Care Team (Late st Contact Info) Description 02/20/2025 3:30 PM EST Office Visit Adult Medicine [facility] [address] [place], [place] [phone] Maria Fernanda Duncan PA [address] [place], [place] Health Maintenance Due Date Last Done Comments Drug Screen 1985 Non-Opioid Controlled Substance Agreement 1983 DTaP,Tdap,and Td Vaccines (1 - Tdap) 10/03/2002 Hepatitis B Vaccines (1 of 3 - 19+ 3-dose series) 10/03/2002 HPV Vaccines (1 - 3-dose SCDM series) 10/03/2010 HIV Screening 01/22/2022 Hepatitis C Screening 01/22/2022 Medicare Annual Wellness Visit 01/22/2022 COVID-19 Vaccine ( season) 2024 02/16/2021, 05/31/2020, 05/02/2020 Influenza Vaccine (#1) 2024 , 11/18/2020, 10/17/2019, Additional history exists Social Influencers of Health Screening 08/07/2025 08/07/2024 Breast Cancer Screening 11/12/2026 11/13/19, 10/27/2023, 10/27/2023 Cervical Cancer Screening: HPV 07/16/2027 07/15/2022 Cholesterol Screening (Lipid Panel) 01/18/2028 01/17/2023 RSV Immunization Adult Patients (1 - 1-dose 75+ series) 10/03/2058 Pneumococcal Vaccine: Pediatrics (0 to 5 Years) and At-Risk Patients (6 to 49 Years) Aged Out 10/11/2019 No longer eligible based on patient's age to complete this topic Depression Screening Completed 08/07/2024 HIB Vaccines Aged [...] Procedure Name Priority Date/Time Associated Diagnosis Comments MG MAMMO DIGITAL SCREENING W BILL BILAT Routine 11/12/2024 3:37 PM EDT Encounter for screening mammogram for breast cancer LIPID PANEL Routine 01/17/2023 HM HPV Routine 07/15/2022 from Last 3 Months or Most Recently Relevant to Health Maintenance Results * MG Mammo Digital Screening w Bill bilat (11/12/2024 3:37 PM EDT) Anatomical Region Laterality Modality Breast Bilateral Mammography 11/14/2024 7:53 AM EDT Impressions 11/14/2024 8:59 AM EDT Benign. BI-RADS CATEGORY: 1 - NEGATIVE RECOMMENDATION: Screening bilateral mammogram is recommended in 1 year. Mammo Location: [facility], [address] [place] [address], [id number], . -------- FINAL REPORT -------- Dictated By: Geovanna Carrera Dictated Date: 11/14/2024 07:53 ET Assigned Physician: Geovanna Carrera Reviewed and Electronically Signed By: Geovanna Carrera Signed Date: 11/14/2024 08:59 ET Workstation ID: [id number] Transcribed By: Self Edit Transcribed Date: 11/14/2024 07:54 ET Narrative 11/14/2024 8:59 AM EDT CLINICAL: 39 years old, Female, routine annual exam. COMPARISON: Mammogram 10/27/2023. TECHNIQUE: Bilateral MLO and CC views were obtained digitally with 3-D mammogram (digital breast tomosynthesis). Computer-aided detection was utilized in evaluation of this exam (CAD). FINDINGS: There is no evidence of suspicious mass or architectural distortion. No worrisome calcifications are evident. There has been no significant change from prior exam(s). BREAST DENSITY: C - The breasts are heterogeneously dense which may obscure small masses. Procedure Note Geovanna Carrera MD - 11/14/2024 CLINICAL: 39 years old, Female, routine annual exam. COMPARISON: Mammogram 10/27/2023. TECHNIQUE: Bilateral MLO and CC views were obtained digitally with 3-Dmammogram (digital breast tomosynthesis). Computer-aided detection wasutilized in evaluation of this exam (CAD). FINDINGS: There is no evidence of suspicious mass or architectural distortion. Noworrisome calcifications are evident. There has been no significantchange from prior exam(s). BREAST DENSITY: C - The breasts are heterogeneously dense which mayobscure small masses. IMPRESSION: Benign. BI-RADS CATEGORY: 1 - NEGATIVE RECOMMENDATION: Screening bilateral mammogram is recommended in 1 year. Mammo Location: [facility], [address] [place] [address], [facility], . -------- FINAL REPORT -------- Dictated By: Geovanna Carrera Dictated Date: 11/14/2024 07:53 ET Assigned Physician: Geovanna Carrera Reviewed and Electronically Signed By: Geovanna Carrera Signed Date: 11/14/2024 08:59 ET Workstation ID: [id number] Transcribed By: Self Edit Transcribed Date: 11/14/2024 07:54 ET Rach Davis MD IMG BI PROCEDURES Final Result * Lipid panel (01/17/2023) Pathologist [facility] Triglycerides 100 <=150 mg/dL Cholesterol 183 <=200 mg/dL HDL 69 >=39 mg/dL LDL Cholesterol 97 0 - 130 mg/dL Blood Venous blood specimen / Unknown Historical Provider LAB BLOOD ORDERABLES Beatris l Result * Cervical Cancer Screening: HPV (07/15/2022) Pathologist [facility] Cervical Cancer Screening: HPV negative, abstracted us Historical Provider HEALTH MAINTENANCE Final Result from Last 3 Months or Most Recently Relevant to Health Maintenance Insurance [facility] MEDICARE Member Subscriber Plan / Payer (Ef fective 2017-Present) Name:DEJA VACA Relation to Subscriber:Self Name:Deja Vaca Payer ID:[id number] Group ID:Not on file Type:Not on file Address: [place] [address] [place] [phone] Care Teams 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
== END 2025-01-29 11:27 | disposition home or self-care (01) ==
LOC: HO.HSMS 10:50
PROVIDERS: PCP Internal Medicine; Visit Provider Psychiatry & Neurology Neurology
DX: G24.3 Spasmodic torticollis (principal); E83.01 Wilson's disease
CPT/HCPCS: 64616

== ENCOUNTER → 2025-01-29 10:49 | Outpatient (BNVA) | payer OTHER, SELFPAY | PROVIDERS: PCP Internal Medicine; Visit Provider Psychiatry & Neurology Neurology | DX: G24.3 Spasmodic torticollis (principal); E83.01 Wilson's disease | CPT/HCPCS: 64616; 99211; J0585 ==